=== PATIENT | female | born 1935 | race Caucasian/White ===

== ENCOUNTER 2024-03-20 18:53 | Inpatient (IN) ==
[2024-03-20 21:45] LABS: iSTAT Creatinine 1.5 mg/dl (0.6-1.3); iSTAT Hemoglobin 9.5 g/dl (12.0-16.0); iSTAT Ionized Calcium 1.17 mmol/l (1.12-1.32); iSTAT Potassium 4.3 mmol/L (3.3-5.0)
[2024-03-20] MEDS: OPTIRAY 320 125ml IV ONE (21:51)
[2024-03-20 22:05] LABS: Alanine Aminotransferase 15 U/L (7-52); Albumin Globulin Ratio 1.2 (0.9-2); Albumin Level 3.4 gm/dl (3.4-5.0); Alkaline Phosphatase 76 U/L (34-104); Anion Gap 8 (3-11); Aspartate Aminotransferase 20 U/L (13-39); BUN Creatinine Ratio 31.7 (10-20); Bilirubin,Total 1.4 mg/dl (0.2-1.0); Blood Urea Nitrogen 44 mg/dl (6-23); Calcium 8.9 mg/dl (8.6-10.3); Carbon Dioxide 24 mmol/L (21-32); Chloride 104 mmol/L (98-107); Est GFR (African American) 38.8 ml/min; Est GFR (Non-African American) 33.5 ml/min; Globulin 2.8 gm/dl (2.5-4.0); Glucose 153 mg/dl (70-99(Fasting)); Potassium 4.2 mmol/L (3.5-5.1); Sodium 136 mmol/L (136-145); Total Protein 6.2 gm/dl (6.0-8.3)
[2024-03-20 22:15] LABS: INR 1.2 (0.9-1.1); Partial Thromboplastin Time 27 Seconds (21-31); Prothrombin Time 12.6 Seconds (9.0-12.0)
[2024-03-20 22:16] LABS: Hematocrit (blood only) 31.4 % (37.0-47.0); Hemoglobin 9.6 g/dl (12.0-16.0); Mean Corpuscular Hemoglobin 25.1 pg (25.0-34.0); Mean Corpuscular Hgb Conc 30.6 g/dL (32.0-36.0); Mean Corpuscular Volume 82.2 fL (80.0-100.0); Mean Platelet Volume 9.5 fL (9.4-12.4); Platelet Count 248 K/uL (130-400); RDW Coefficient of Variation 17.4 % (11.5-14.5); RDW Standard Deviation 50.7 fL (36.4-46.3); Red Blood Count 3.82 M/uL (4.20-5.40); White Blood Count 8.29 K/ul (4.8-10.8)
--- NOTE | 2024-03-20 22:47 | Emergency Department Note ---
Impression & Plan Bilateral leg weakness, Bilateral pleural effusion, Bilateral leg edema, Renal insufficiency, Elevated troponin ED Provider Note NAME: MARIA T SHI AGE: 88 SEX: F : 1935 ARRIVES VIA: Walk-In INFORMANT: Patient ED PROVIDER(S): Angelito Mccarthy MD CHIEF COMPLAINT: Leg weakness, PLAN: Disposition: Admit MEDICAL DECISION MAKING: The patient is a pleasant 88-year-old woman with past medical history of hypertension, hypothyroidism, status post AVR with bioprosthetic valve yesterday at [facility] where she was discharged this morning with who presents to the emergency department via walk-in accompanied by her and son for evaluation of generalized weakness of bilateral lower extremities with right lower extremity weaker than the left. The patient's son reports that to his knowledge there was no physical therapy assessment prior to her discharge. He adds that she was experiencing lower extremity weakness even before her admission but it was there hope/anticipation that this would have resolved after her valve replacement. He reports that they left the hospital and stopped at his home in [place] to change cars and had noticed that she could not stand on her own or walk. However instead of returning to [facility] they were hopeful that this would resolve and proceeded to travel back to [place] and route to her home in [place]. However due to the persistence of her weakness I decided that they could not care for her at home and brought her to the emergency department. They report that they are concerned that there may be a stroke given her right leg appears weaker than the left. The patient himself is a poor historian and perseverates on where her grandson is. She denies any complaints at this time. Last known well time is unknown as patient's son reports that the patient had not ambulated prior to her discharge. Of note, the patient did arrive to emergency department during time of high volume, acuity and prolonged emergency department waiting times. Critical pathways initiated from triage. On evaluation the patient is in no acute distress, afebrile with stable vital signs. She exhibits 2/5 strength of bilateral lower extremities with right lower extremity slightly weaker than the left. She has positive Doppler signal in bilateral lower extremities. Bilateral lower extremities are warm with normal capillary refill. Bilateral groin sites with ecchymosis appropriate for her postop status without significant hematoma or seroma. She has 1+ bilateral lower extremity edema. EKG is paced without overt acute ischemia. Chest x-ray with bilateral pleural effusions and venous congestion. WBC and platelets within normal limits. H/H 9.6/31.4 without prior for comparison. Creatinine is 1.39 without prior for comparison. LFTs are unremarkable. Initial high styptic troponin 317, nonspecific in the setting of the patient's aortic valve replacement yesterday. UA without evidence of infection. CT of the head and CT of the head and neck were performed and were negative for ICH, ischemia or severe narrowing occlusion of large vessels. Description of possible bronchitis with pneumonitis is noted as well as further visualization of bilateral pleural effusions given supine positioning. Given bilateral lower extremity pulses are present unlikely to have symptoms related to acute vascular process/injury in the setting of her recent aortic valve replacement. However, given the patient's inability to ambulate reasonable to admit for further stroke evaluation and PT/OT assessment. The patient's son and at the bedside agree with plan for admission. Case was [facility] with [facility], who will evaluate the patient for admission. Further management per admitting team. Triage Nursing notes reviewed and agree them. Prior/external medical records reviewed Vital Signs: reviewed Differential diagnosis: Infection, dehydration, metabolic abnormality, hypo/hyperglycemia, electrolyte disturbance, anemia, hypoxia, cardiac sources, intracerebral event, toxicologic, neurologic, as well as other pathologies. ER treatment provided: See below. Diagnostics interpreted by me: ECG: Ventricular paced rhythm, 81 bpm, no ectopy, no overt ischemia. Cardiac Monitoring: An order for continuous cardiac monitoring was placed and demonstrated Ventricular paced rhythm, 81 bpm, no ectopy. Laboratory studies: See below Imaging studies: See below Consultation(s): [facility] was [facility], who will evaluate the patient for admission. HPI: The patient is a pleasant 88-year-old woman with past medical history of hypertension, hypothyroidism, status post AVR with bioprosthetic valve yesterday at [facility] where she was discharged this morning with who presents to the emergency department via walk-in accompanied by her and son for evaluation of generalized weakness of bilateral lower extremities with right lower extremity weaker than the left. The patient's son reports that to his knowledge there was no physical therapy assessment prior to her discharge. He adds that she was experiencing lower extremity weakness even before her admission but it was there hope/anticipation that this would have resolved after her valve replacement. He reports that they left the hospital and stopped at his home in [place] to change cars and had noticed that she could not stand on her own or walk. However instead of returning to [facility] they were hopeful that this would resolve and proceeded to travel back to [place] and route to her home in [place]. However due to the persistence of her weakness I decided that they could not care for her at home and brought her to the emergency department. They report that they are concerned that there may be a stroke given her right leg appears weaker than the left. The patient himself is a poor historian and perseverates on where her grandson is. She denies any complaints at this time. Last known well time is unknown as patient's son reports that the patient had not ambulated prior to her discharge. ROS: See above HPI for pertinent positives & negatives. A total of 10 systems reviewed and were otherwise negative. VITALS:See Below PHYSICAL EXAMINATION: GENERAL: Awake, alert, in no distress HENT: Normocephalic, atraumatic. Oropharynx unremarkable. EYES: Normal conjunctiva. Sclera non-icteric. NECK: Supple. No nuchal rigidity. FROM. No JVD. RESPIRATORY: Clear to auscultation. CARDIAC: Regular rate, normal rhythm. Extremities warm and well perfused. Pedal pulses present and equal. ABDOMEN: Soft, non-distended. No tenderness to palpation. No rebound or guarding. No masses. MUSCULOSKELETAL: Chest examination reveals no tenderness. The back is symmetrical on inspection without obvious abnormality. There is no CVA tenderness to palpation. No joint edema. LOWER EXTREMITIES: Calves are equal size bilaterally and non-tender. 1+ edema. No discoloration. NEURO: Generalized weakness with increased weakness in bilateral extremities with 2/5 strength with right lower extremity mildly weaker than the left. SKIN: No rash or jaundice noted. Angelito Mccarthy MD Past Med/Surg History Problem List (Updated 03/21/24 @ 02:46 by Angelito Mccarthy MD) Elevated troponin (Acute) Renal insufficiency (Acute) Bilateral leg edema (Acute) Bilateral pleural effusion (Acute) Bilateral leg weakness (Acute) Weakness Medical History Hypothyroidism Hypertension Surgical History S/P AVR (aortic valve replacement) Social History Smoking Status: Never smoker Preferred Language: Georgian Feels Safe at Home: Yes Home Meds Home Medications Medication Instructions Recorded Confirmed amlodipine 2.5 mg tablet 2.5 mg PO DAILY 03/21/24 03/21/24 atorvastatin 10 mg tablet 10 mg PO DAILY 03/21/24 03/21/24 bumetanide 0.5 mg tablet 1 mg PO DAILY 03/21/24 03/21/24 cholecalciferol (vitamin D3) 125 125 mcg PO DAILY 03/21/24 03/21/24 mcg (5,000 unit) tablet (Vitamin D3) cyanocobalamin (vitamin B-12) 1,000 mcg PO DAILY 03/21/24 03/21/24 1,000 mcg tablet levothyroxine 75 mcg tablet 75 mcg PO DAILY 03/21/24 03/21/24 losartan 50 mg tablet 50 mg PO DAILY 03/21/24 03/21/24 potassium chloride 10 mEq 10 meq PO DAILY 03/21/24 03/21/24 tablet,extended release Results & Data (ED) Vital Signs Vital Signs - 24 hr 03/20/24 18:56 03/20/24 19:01 03/20/24 19:01 Temperature 36.8 C Temperature Source Temporal Artery Scan Pulse Rate 92 H Pulse Rate from SpO2 Sensor Respiratory Rate 16 Blood Pressure 127/68 Blood Pressure Mean 87 Pulse Oximetry 98 Oxygen Delivery Method Room Air Room Air Room Air Sepsis Recent Fever Within 48 Hours No Sepsis New/Unexplained Change in Mental Status No Sepsis Action Taken by Nursing No Action Required 03/20/24 20:33 03/20/24 20:36 03/20/24 20:54 Temperature Temperature Source Pulse Rate 83 82 80 Pulse Rate from SpO2 Sensor 82 Respiratory Rate 25 H 18 Blood Pressure Blood Pressure Mean Pulse Oximetry 97 Oxygen Delivery Method Sepsis Recent Fever Within 48 Hours Sepsis New/Unexplained Change in Mental Status Sepsis Action Taken by Nursing 03/20/24 21:07 03/20/24 21:07 03/20/24 21:09 Temperature Temperature Source Pulse Rate 95 H Pulse Rate from SpO2 Sensor 95 H Respiratory Rate Blood Pressure 129/70 129/70 Blood Pressure Mean 104 104 Pulse Oximetry 94 Oxygen Delivery Method Sepsis Recent Fever Within 48 Hours Sepsis New/Unexplained Change in Mental Status Sepsis Action Taken by Nursing 03/21/24 00:39 Temperature Temperature Source Pulse Rate 73 Pulse Rate from SpO2 Sensor Respiratory Rate Blood Pressure Blood Pressure Mean Pulse Oximetry Oxygen Delivery Method Sepsis Recent Fever Within 48 Hours Sepsis New/Unexplained Change in Mental Status Sepsis Action Taken by Nursing Laboratory Data Attestation: I reviewed the patient's lab results. 03/20/24 21:27 03/20/24 21:27 Lab Results 03/20/24 03/20/24 Range/Units 21:27 21:33 WBC 8.29 (4.8-10.8) K/ul RBC 3.82 L (4.20-5.40) M/uL Hgb 9.6 L (12.0-16.0) g/dl POC Hgb 9.5 L (12.0-16.0) g/dl Hct 31.4 L (37.0-47.0) % POC Hct 28 L (37-47) % MCV 82.2 (80.0-100.0) fL MCH 25.1 (25.0-34.0) pg MCHC 30.6 L (32.0-36.0) g/dL RDW Std Deviation 50.7 H (36.4-46.3) fL RDW Coeff of Priscilla 17.4 H (11.5-14.5) % Plt Count 248 (130-400) K/uL MPV 9.5 (9.4-12.4) fL PT 12.6 H (9.0-12.0) Seconds INR 1.2 H (0.9-1.1) APTT 27 (21-31) Seconds PTT Ratio 1.0 POC Sodium 141 (135-144) mmol/L Sodium 136 (136-145) mmol/L POC Potassium 4.3 (3.3-5.0) mmol/L Potassium 4.2 (3.5-5.1) mmol/L POC Chloride 107 (101-112) mmol/L Chloride 104 (98-107) mmol/L Carbon Dioxide 24 (21-32) mmol/L POC Total CO2 25 (24-31) mmol/L Anion Gap 8 (3-11) POC Anion Gap 15.0 L (16-25) mmol/L POC BUN 44 H (7-18) mg/dl BUN 44 H (6-23) mg/dl Creatinine 1.39 H (0.6-1.2) mg/dl POC Creatinine 1.5 H (0.6-1.3) mg/dl Est Cr Clr Drug Dosing Not Reportable Est GFR ( Amer) 38.8 ml/min Est GFR (Non-Af Amer) 33.5 ml/min BUN/Creatinine Ratio 31.7 H (10-20) Glucose 153 H (70-99(Fasting)) mg/dl POC Glucose (other) 153 H (70-99) mg/dl Calcium 8.9 (8.6-10.3) mg/dl POC Ioniz Calcium Rosio 1.17 (1.12-1.32) mmol/l Magnesium 2.0 (1.7-2.4) mg/dl Total Bilirubin 1.4 H (0.2-1.0) mg/dl AST 20 (13-39) U/L ALT 15 (7-52) U/L Alkaline Phosphatase 76 (34-104) U/L Troponin I High Sens 317.7 H* (0-14) pg/ml Total Protein 6.2 (6.0-8.3) gm/dl Albumin 3.4 (3.4-5.0) gm/dl Globulin 2.8 (2.5-4.0) gm/dl Albumin/Globulin Ratio 1.2 (0.9-2) Administered Medications Discontinued Medications Ioversol (Optiray 320 125ml) 117 ml IV ONCE ONE Stop: 03/20/24 21:51 Last Admin: 03/20/24 21:51 Dose: 117 ml Documented By: [facility] Imaging Data Radiologist's Impression: Head CT 03/20/24 19:01 CR Exam(s): CT HEAD Without Contrast EXAM: CT Head Without Intravenous Contrast CLINICAL HISTORY: Reason for exam: Neuro deficit, acute, stroke suspected. TECHNIQUE: Axial computed tomography images of the head/brain without intravenous contrast. CTDI is 31.88 mGy and DLP is 1179.85 mGy-cm. Automated exposure control was utilized for the study. A dose lowering technique was utilized adhering to the principles of ALARA. COMPARISON: No relevant prior studies available. FINDINGS: This study is limited secondary to motion artifact. Brain: Unremarkable. No hemorrhage. Advanced nonspecific white matter changes.. No edema. Ventricles: Unremarkable. No ventriculomegaly. Bones/joints: Unremarkable. No acute fracture. Soft tissues: Unremarkable. Sinuses: Unremarkable as visualized. No acute sinusitis. Mastoid air cells: Unremarkable as visualized. No mastoid effusion. IMPRESSION: No evidence of acute intracranial pathology. Communications: Call Doctor Stroke Electronically signed by: Naya Mckeon MD 03/20/24 23:02 PM Head CTA 03/20/24 21:16 CR Exam(s): CTA HEAD With Contrast IV Amt: 117 cc opti 320 EXAM: CT Angiography Head With Intravenous Contrast CLINICAL HISTORY: Reason for exam: BLE weakness. TECHNIQUE: Axial computed tomographic angiography images of the head with intravenous contrast. CTDI is 31.88 mGy and DLP is 1179.85 mGy-cm. Automated exposure control was utilized for the study. A dose lowering technique was utilized adhering to the principles of ALARA. MIP reconstructed images were created and reviewed. CONTRAST: Patient received 117 cc opti 320 of IV contrast COMPARISON: No relevant prior studies available. FINDINGS: The dural venous sinuses are patent. Right internal carotid artery: No acute findings. Intracranial segment is patent with no significant stenosis. No aneurysm. Right anterior cerebral artery: Unremarkable. No occlusion or significant stenosis. No aneurysm. Right middle cerebral artery: Unremarkable. No occlusion or significant stenosis. No aneurysm. Right posterior cerebral artery: Unremarkable. No occlusion or significant stenosis. No aneurysm. Right vertebral artery: Unremarkable as visualized. Left internal carotid artery: No acute findings. Intracranial segment is patent with no significant stenosis. No aneurysm. Left anterior cerebral artery: Unremarkable. No occlusion or significant stenosis. No aneurysm. Left middle cerebral artery: Unremarkable. No occlusion or significant stenosis. No aneurysm. Left posterior cerebral artery: Unremarkable. No occlusion or significant stenosis. No aneurysm. Left vertebral artery: Unremarkable as visualized. Basilar artery: Unremarkable. No occlusion or significant stenosis. No aneurysm. IMPRESSION: Negative CT angiogram of the head. Communications: Verify Receipt Call Doctor Stroke Electronically signed by: Naya Mckeon MD 03/20/24 23:05 PM Neck CTA 03/20/24 21:16 CR Exam(s): CTA NECK With Contrast IV Amt: 117 cc opti 320 EXAM: CT Angiography Neck With Intravenous Contrast CLINICAL HISTORY: Reason for exam: BLE weakness. TECHNIQUE: Routine carotid CT angiography protocol was performed with intravenous contrast. NASCET criteria using the distal ICAs for comparison were used for evaluation of stenoses. CTDI is 31.88 mGy and DLP is 1179.85 mGy-cm. Automated exposure control was utilized for the study. A dose lowering technique was utilized adhering to the principles of ALARA. MIP reconstructed images were created and reviewed. CONTRAST: Patient received 117 cc opti 320 of IV contrast COMPARISON: None. FINDINGS: VASCULATURE: Aberrant right subclavian artery. Right common carotid artery: Unremarkable. No occlusion or significant stenosis. No dissection. Right internal carotid artery: Unremarkable. Extracranial segment is patent with no occlusion or significant stenosis. No dissection. Right external carotid artery: Unremarkable. No occlusion. Right vertebral artery: Unremarkable. No occlusion or significant stenosis. No dissection. Left common carotid artery: Unremarkable. No occlusion or significant stenosis. No dissection. Left internal carotid artery: Unremarkable. Extracranial segment is patent with no occlusion or significant stenosis. No dissection. Left external carotid artery: Unremarkable. No occlusion. Left vertebral artery: Unremarkable. No occlusion or significant stenosis. No dissection. NECK: Bones/joints: Unremarkable. No acute fracture. Soft tissues: Prominent mediastinal and hilar lymph nodes. Lung apices: Bronchitis with pneumonitis and bilateral pleural effusions. CAROTID STENOSIS REFERENCE USING NASCET CRITERIA: % ICA stenosis = (1 - narrowest ICA diameter/diameter of distal cervical ICA) x 100. Mild - <50% stenosis. Moderate - 50-69% stenosis. Severe - 70-94% stenosis. Near occlusion - 95-99% stenosis. Occluded - 100% stenosis. IMPRESSION: Negative CTA neck. Communications: Verify Receipt Call Doctor Stroke Electronically signed by: Naya Mckeon MD 03/20/24 23:09 PM Discharge Plan Visit Data Chief Complaint: TIA Symptoms Stated Complaint: POSSIBLE STOKE, UNABLE TO MOVE, RECENT VALVE RP ED Provider: Angelito Mccarthy Discharge Problem: Bilateral leg weakness, Bilateral pleural effusion, Bilateral leg edema, Renal insufficiency, Elevated troponin Patient Disposition: Admitted As Inpatient Discharge Instructions Interventions: ED Discharge Assessment Last Done: 03/21/24 02:29
--- NOTE | 2024-03-20 23:03 | CT Scan Report ---
Exam(s): CT HEAD Without Contrast EXAM: CT Head Without Intravenous Contrast CLINICAL HISTORY: Reason for exam: Neuro deficit, acute, stroke suspected. TECHNIQUE: Axial computed tomography images of the head/brain without intravenous contrast. CTDI is 31.88 mGy and DLP is 1179.85 mGy-cm. Automated exposure control was utilized for the study. A dose lowering technique was utilized adhering to the principles of ALARA. COMPARISON: No relevant prior studies available. FINDINGS: This study is limited secondary to motion artifact. Brain: Unremarkable. No hemorrhage. Advanced nonspecific white matter changes.. No edema. Ventricles: Unremarkable. No ventriculomegaly. Bones/joints: Unremarkable. No acute fracture. Soft tissues: Unremarkable. Sinuses: Unremarkable as visualized. No acute sinusitis. Mastoid air cells: Unremarkable as visualized. No mastoid effusion. IMPRESSION: No evidence of acute intracranial pathology. Communications: Call Doctor Stroke Electronically signed by: Naya Mckeon MD 03/20/24 23:02 PM
--- NOTE | 2024-03-20 23:06 | CT Scan Report ---
Exam(s): CTA HEAD With Contrast IV Amt: 117 cc opti 320 EXAM: CT Angiography Head With Intravenous Contrast CLINICAL HISTORY: Reason for exam: BLE weakness. TECHNIQUE: Axial computed tomographic angiography images of the head with intravenous contrast. CTDI is 31.88 mGy and DLP is 1179.85 mGy-cm. Automated exposure control was utilized for the study. A dose lowering technique was utilized adhering to the principles of ALARA. MIP reconstructed images were created and reviewed. CONTRAST: Patient received 117 cc opti 320 of IV contrast COMPARISON: No relevant prior studies available. FINDINGS: The dural venous sinuses are patent. Right internal carotid artery: No acute findings. Intracranial segment is patent with no significant stenosis. No aneurysm. Right anterior cerebral artery: Unremarkable. No occlusion or significant stenosis. No aneurysm. Right middle cerebral artery: Unremarkable. No occlusion or significant stenosis. No aneurysm. Right posterior cerebral artery: Unremarkable. No occlusion or significant stenosis. No aneurysm. Right vertebral artery: Unremarkable as visualized. Left internal carotid artery: No acute findings. Intracranial segment is patent with no significant stenosis. No aneurysm. Left anterior cerebral artery: Unremarkable. No occlusion or significant stenosis. No aneurysm. Left middle cerebral artery: Unremarkable. No occlusion or significant stenosis. No aneurysm. Left posterior cerebral artery: Unremarkable. No occlusion or significant stenosis. No aneurysm. Left vertebral artery: Unremarkable as visualized. Basilar artery: Unremarkable. No occlusion or significant stenosis. No aneurysm. IMPRESSION: Negative CT angiogram of the head. Communications: Verify Receipt Call Doctor Stroke Electronically signed by: Naya Mckeon MD 03/20/24 23:05 PM
--- NOTE | 2024-03-20 23:11 | CT Scan Report ---
Exam(s): CTA NECK With Contrast IV Amt: 117 cc opti 320 EXAM: CT Angiography Neck With Intravenous Contrast CLINICAL HISTORY: Reason for exam: BLE weakness. TECHNIQUE: Routine carotid CT angiography protocol was performed with intravenous contrast. NASCET criteria using the distal ICAs for comparison were used for evaluation of stenoses. CTDI is 31.88 mGy and DLP is 1179.85 mGy-cm. Automated exposure control was utilized for the study. A dose lowering technique was utilized adhering to the principles of ALARA. MIP reconstructed images were created and reviewed. CONTRAST: Patient received 117 cc opti 320 of IV contrast COMPARISON: None. FINDINGS: VASCULATURE: Aberrant right subclavian artery. Right common carotid artery: Unremarkable. No occlusion or significant stenosis. No dissection. Right internal carotid artery: Unremarkable. Extracranial segment is patent with no occlusion or significant stenosis. No dissection. Right external carotid artery: Unremarkable. No occlusion. Right vertebral artery: Unremarkable. No occlusion or significant stenosis. No dissection. Left common carotid artery: Unremarkable. No occlusion or significant stenosis. No dissection. Left internal carotid artery: Unremarkable. Extracranial segment is patent with no occlusion or significant stenosis. No dissection. Left external carotid artery: Unremarkable. No occlusion. Left vertebral artery: Unremarkable. No occlusion or significant stenosis. No dissection. NECK: Bones/joints: Unremarkable. No acute fracture. Soft tissues: Prominent mediastinal and hilar lymph nodes. Lung apices: Bronchitis with pneumonitis and bilateral pleural effusions. CAROTID STENOSIS REFERENCE USING NASCET CRITERIA: % ICA stenosis = (1 - narrowest ICA diameter/diameter of distal cervical ICA) x 100. Mild - <50% stenosis. Moderate - 50-69% stenosis. Severe - 70-94% stenosis. Near occlusion - 95-99% stenosis. Occluded - 100% stenosis. IMPRESSION: Negative CTA neck. Communications: Verify Receipt Call Doctor Stroke Electronically signed by: Naya Mckeon MD 03/20/24 23:09 PM
[2024-03-20 23:59] LABS: Troponin I High Sensitivity 317.7 pg/ml (0-14)
--- NOTE | 2024-03-21 01:36 | History & Physical Report ---
Date of Service March 21, 2024 Assessment & Plan (1) Weakness: Plan: 88-year-old female with past medical history significant for hypertension, hyperlipidemia, hypothyroidism, history of bradycardia status post pacemaker last year at the [facility] and on 03/18/2024 she had had TAVR procedure for aortic valve at [place] and was discharged on 03/19/2024 was brought in by and son because of weakness. As per son at the time of d ischarge patient was weak but was got discharged and son took her to his home. Before admitted to [place] patient was ambulating okay sometimes used to use cane. But since she was discharged from [place] patient is not at all ambulating. She is able to lift her left leg somewhat but right leg she is dragging. Her upper extremities also seemed very weak. This reason family brought her back to the hospital. Patient is currently sleeping. Very hard of hearing. Could tell her name. Knows that she is in the hospital. Can tell her date of . But could not tell current dates. She denies any chest pain or abdominal pain. Denies nausea or shortness of breath. Could not get much history from the patient as currently is sleepy. As per the family prior to surgery she was not eating much but after surgery she had two good meals. And she is swallowing okay. Before surgery she was getting short of breath but after surgery her shortness of breath seemed improved. family not sure that she had a CHF. But taking Bumex. Family denies any cardiac stents.Family says patient has on and off confusion going on for some time but not sure if she has dementia. Patient is afebrile. As per family no nausea or vomiting. Family does not know whether she has any diarrhea.. As per patient has urinary incontinence. Son is somewhat concerned that patient might had stroke. No runny nose or sore throat or cough. Vision is okay. Currently hemodynamics are okay. Family helped with H and P. Son lives in [place]. Patient and her live in [place]. Weakness Seems generalized weakness but also right leg is more weaker than left Rule out stroke CT head, CTA head and neck unremarkable Neurochecks Ordered MRI but patient recently had seems had TAVR procedure at [place] and pacemaker placement last year at [facility] -cannot do MRI until Saturday because of pacemaker PT OT Telemetry Neurology consult in a.m. for further recommendations probable deconditioning May need placement Elevated troponin Troponin 317 Patient asymptomatic EKG okay Had recent TAVR procedure We will follow serial enzymes and echo Consult cardiology Anemia Hemoglobin 9.6 We do not have baseline labs We will check stool for Hemoccult Iron studies Vitamin B12 folate levels follow labs LY versus CKD Presents with creatinine 1.3 Do not have baseline labs To get records We will follow repeat labs Hypertension Continue home amlodipine and losartan Will hold losartan if renal function worsens Hyperlipidemia On statin Hypothyroidism On Synthyroid follow tsh Lower EXTR edema Possible CHF On Bumex Will follow echo DVT prophylaxis SCDs for now Disposition Telemetry CODE STATUS full code only if there is chance of recovery as per my discussion with the son History of Present Illness Chief Complaint: Weakness Primary Care Provider: SEAN PCP 88-year-old female with past medical history significant for hypertension, hyperlipidemia, hypothyroidism, history of bradycardia status post pacemaker last year at the [facility] and on 03/18/2024 she had had TAVR procedure for aortic valve at [place] and was discharged on 03/19/2024 was brought in by and son because of weakness. As per son at the time of discharge patient was weak but was got discharged and son took her to his home. Before admitted to [place] patient was ambulating okay sometimes used to use cane. But since she was discharged from [place] patient is not at all ambulating. She is able to lift her left leg somewhat but right leg she is dragging. Her upper extremities also seemed very weak. This reason family brought her back to the hospital. Patient is currently sleeping. Very hard of hearing. Could tell her name. Knows that she is in the hospital. Can tell her date of . But could not tell current dates. She denies any chest pain or abdominal pain. Denies nausea or shortness of breath. Could not get much history from the patient as currently is sleepy. As per the family prior to surgery she was not eating much but after surgery she had two good meals. And she is swallowing okay. Before surgery she was getting short of breath but after surgery her shortness of breath seemed improved. family not sure that she had a CHF. But taking Bumex. Family denies any cardiac stents.Family says patient has on and off confusion going on for some time but not sure if she has dementia. Patient is afebrile. As per family no nausea or vomiting. Family does not know whether she has any diarrhea.. As per patient has urinary incontinence. Son is somewhat concerned that patient might had stroke. No runny nose or sore throat or cough. Vision is okay. Currently hemodynamics are okay. Family helped with H and P. Son lives in [place]. Patient and her hus band live in [place]. Past medical history. As mentioned above Past surgical history. Status post pacemaker. Status post bioprosthetic aortic valve replacement. Status post bladder tack surgery. Social history. No smoking. Alcohol rarely. Family history. Mother had liver cancer. Allergies Allergy/AdvReac Type Severity Reaction Status Date / Time No Known Allergies Allergy Unverified 03/21/24 02:52 Home Medications Medication Instructions Recorded Confirmed Type amlodipine 2.5 mg tablet 2.5 mg PO DAILY 03/21/24 03/21/24 History atorvastatin 10 mg tablet 10 mg PO DAILY 03/21/24 03/21/24 History bumetanide 0.5 mg tablet 1 mg PO DAILY 03/21/24 03/21/24 History cholecalciferol (vitamin D3) 125 125 mcg PO DAILY 03/21/24 03/21/24 History mcg (5,000 unit) tablet (Vitamin D3) cyanocobalamin (vitamin B-12) 1,000 mcg PO DAILY 03/21/24 03/21/24 History 1,000 mcg tablet levothyroxine 75 mcg tablet 75 mcg PO DAILY 03/21/24 03/21/24 History losartan 50 mg tablet 50 mg PO DAILY 03/21/24 03/21/24 History potassium chloride 10 mEq 10 meq PO DAILY 03/21/24 03/21/24 History tablet,extended release Past Med/Surg History Problem List (Updated 03/21/24 @ 02:46 by Angelito Mccarthy MD) Elevated troponin (Acute) Renal insufficiency (Acute) Bilateral leg edema (Acute) Bilateral pleural effusion (Acute) Bilateral leg weakness (Acute) Weakness Medical History Hypothyroidism Hypertension Surgical History S/P AVR (aortic valve replacement) Social History Smoking Status: Never smoker Hx Alcohol Use: Yes Alcohol type: wine Hx Substance Use: No Preferred Language: Korean Communication Ability: Effective Factory Expert Required: No Beliefs That Will Affect Care: Rastafarian Rastafarian Beliefs: Yazidism Current Living Situation: Spouse Other Information That Helps Us Care for You: No Feels Safe at Home: Yes Safety Concerns: Feels Safe At This Time Review of Systems Review of Systems: Unobtainable due to cognitive status Physical Exam 2 Physical Exam: General- Not in acute distress. Sleepy Head- atraumatic Neck- no JVD Lungs- clear to auscultation no wheezing or crackles Heart- regular rate and rhythm; no murmur, no gallop Abdomen- normal bowel sounds, soft, mild discomfort, no distension Extremities- mild pretibial edema present , no erythema seen Neuro- alert, oriented x 2; ; no facial palsy; no dysarthria; could not do full exam as patient is very drowsy currently Results & Data Results & Data Vital Signs (Past 12 Hours) Vital Signs Temp Pulse Resp BP Pulse Ox O2 Del Method 03/21/24 00:39 73 03/20/24 21:09 95 H 94 03/20/24 21:07 129/70 03/20/24 21:07 129/70 03/20/24 20:54 80 18 03/20/24 20:36 82 25 H 97 03/20/24 20:33 83 03/20/24 19:01 Room Air 03/20/24 19:01 Room Air 03/20/24 18:56 36.8 C 92 H 16 127/68 98 Room Air Diagnostic Findings Laboratory Results WBC 8.29 K/ul (4.8-10.8) 03/20/24 21:27 RBC 3.82 M/uL (4.20-5.40) L 03/20/24 21:27 Hgb 9.6 g/dl (12.0-16.0) L 03/20/24 21: POC Hgb 9.5 g/dl (12.0-16.0) L 03/20/24 21:33 Hct 31.4 % (37.0-47.0) L 03/20/24 21: POC Hct 28 % (37-47) L 03/20/24 21:33 MCV 82.2 fL (80.0-100.0) 03/20/24 21: MCH 25.1 pg (25.0-34.0) 03/20/24 21: MCHC 30.6 g/dL (32.0-36.0) L 03/20/24 21: RDW Std Deviation 50.7 fL (36.4-46.3) H 03/20/24 21: RDW Coeff of Priscilla 17.4 % (11.5-14.5) H 03/20/24 21: Plt Count 248 K/uL (130-400) 03/20/24 21: MPV 9.5 fL (9.4-12.4) 03/20/24: PT 12.6 Seconds (9.0-12.0) H 03/20/24 21: INR 1.2 (0.9-1.1) H 03/20/24 21: APTT 27 Seconds (21-31) 03/20/24: PTT Ratio 1.0 03/20/24 21: POC Sodium 141 mmol/L (135-144) 03/20/24 21: Sodium 136 mmol/L (136-145) 03/20/24 21: POC Potassium 4.3 mmol/L (3.3-5.0) 03/20/24 21: Potassium 4.2 mmol/L (3.5-5.1) 03/20/24 21: POC Chloride 107 mmol/L (101-112) 03/20/24 21: Chloride 104 mmol/L (98-107) 03/20/24 21: Carbon Dioxide 24 mmol/L (21-32) 03/20/24 21: POC Total CO2 25 mmol/L (24-31) 03/20/24 21: Anion Gap 8 (3-11) 03/20/24 21: POC Anion Gap 15.0 mmol/L (16-25) L 03/20/24 21:33 POC BUN 44 mg/dl (7-18) H 03/20/24 21:33 BUN 44 mg/dl (6-23) H 03/20/24 21: Creatinine 1.39 mg/dl (0.6-1.2) H 03/20/24 21: POC Creatinine 1.5 mg/dl (0.6-1.3) H 03/20/24 21:33 Est Cr Clr Drug Dosing Not Reportable 03/20/24 21: Est GFR ( Amer) 38.8 ml/min 03/20/24 21: Est GFR (Non-Af Amer) 33.5 ml/min 03/20/24 21: BUN/Creatinine Ratio 31.7 (10-20) H 03/20/24 21:27 Glucose 153 mg/dl (70-99(Fasting)) H 03/20/24 21: POC Glucose (other) 153 mg/dl (70-99) H 03/20/24 21:33 Calcium 8.9 mg/dl (8.6-10.3) 03/20/24: POC Ioniz Calcium Rosio 1.17 mmol/l (1.12-1.32) 03/20/24 21: Magnesium 2.0 mg/dl (1.7-2.4) 03/20/24: Total Bilirubin 1.4 mg/dl (0.2-1.0) H 03/20/24 21: AST 20 U/L (13-39) 03/20/24 21: ALT 15 U/L (7-52) 03/20/24 21: Alkaline Phosphatase 76 U/L (34-104) 03/20/24 21: Troponin I High Sens 317.7 pg/ml (0-14) H* 03/20/24 21: Total Protein 6.2 gm/dl (6.0-8.3) 03/20/24 21: Albumin 3.4 gm/dl (3.4-5.0) 03/20/24 21: Globulin 2.8 gm/dl (2.5-4.0) 03/20/24 21: Albumin/Globulin Ratio 1.2 (0.9-2) 03/20/24 21: Impressions Head CT 03/20/24 19:01 CR Exam(s): CT HEAD Without Contrast EXAM: CT Head Without Intravenous Contrast CLINICAL HISTORY: Reason for exam: Neuro deficit, acute, stroke suspected. TECHNIQUE: Axial computed tomography images of the head/brain without intravenous contrast. CTDI is 31.88 mGy and DLP is 1179.85 mGy-cm. Automated exposure control was utilized for the study. A dose lowering technique was utilized adhering to the principles of ALARA. COMPARISON: No relevant prior studies available. FINDINGS: This study is limited secondary to motion artifact. Brain: Unremarkable. No hemorrhage. Advanced nonspecific white matter changes.. No edema. Ventricles: Unremarkable. No ventriculomegaly. Bones/joints: Unremarkable. No acute fracture. Soft tissues: Unremarkable. Sinuses: Unremarkable as visualized. No acute sinusitis. Mastoid air cells: Unremarkable as visualized. No mastoid effusion. IMPRESSION: No evidence of acute intracranial pathology. Communications: Call Doctor Stroke Electronically signed by: Naya Mckeon MD 03/20/24 23:02 PM Head CTA 03/20/24 21:16 CR Exam(s): CTA HEAD With Contrast IV Amt: 117 cc opti 320 EXAM: CT Angiography Head With Intravenous Contrast CLINICAL HISTORY: Reason for exam: BLE weakness. TECHNIQUE: Axial computed tomographic angiography images of the head with intravenous contrast. CTDI is 31.88 mGy and DLP is 1179.85 mGy-cm. Automated exposure control was utilized for the study. A dose lowering technique was utilized adhering to the principles of ALARA. MIP reconstructed images were created and reviewed. CONTRAST: Patient received 117 cc opti 320 of IV contrast COMPARISON: No relevant prior studies available. FINDINGS: The dural venous sinuses are patent. Right internal carotid artery: No acute findings. Intracranial segment is patent with no significant stenosis. No aneurysm. Right anterior cerebral artery: Unremarkable. No occlusion or significant stenosis. No aneurysm. Right middle cerebral artery: Unremarkable. No occlusion or significant stenosis. No aneurysm. Right posterior cerebral artery: Unremarkable. No occlusion or significant stenosis. No aneurysm. Right vertebral artery: Unremarkable as visualized. Left internal carotid artery: No acute findings. Intracranial segment is patent with no significant stenosis. No aneurysm. Left anterior cerebral artery: Unremarkable. No occlusion or significant stenosis. No aneurysm. Left middle cerebral artery: Unremarkable. No occlusion or significant stenosis. No aneurysm. Left posterior cerebral artery: Unremarkable. No occlusion or significant stenosis. No aneurysm. Left vertebral artery: Unremarkable as visualized. Basilar artery: Unremarkable. No occlusion or significant stenosis. No aneurysm. IMPRESSION: Negative CT angiogram of the head. Communications: Verify Receipt Call Doctor Stroke Electronically signed by: Naya Mckeon MD 03/20/24 23:05 PM Neck CTA 03/20/24 21:16 CR Exam(s): CTA NECK With Contrast IV Amt: 117 cc opti 320 EXAM: CT Angiography Neck With Intravenous Contrast CLINICAL HISTORY: Reason for exam: BLE weakness. TECHNIQUE: Routine carotid CT angiography protocol was performed with intravenous contrast. NASCET criteria using the distal ICAs for comparison were used for evaluation of stenoses. CTDI is 31.88 mGy and DLP is 1179.85 mGy-cm. Automated exposure control was utilized for the study. A dose lowering technique was utilized adhering to the principles of ALARA. MIP reconstructed images were created and reviewed. CONTRAST: Patient received 117 cc opti 320 of IV contrast COMPARISON: None. FINDINGS: VASCULATURE: Aberrant right subclavian artery. Right common carotid artery: Unremarkable. No occlusion or significant stenosis. No dissection. Right internal carotid artery: Unremarkable. Extracranial segment is patent with no occlusion or significant stenosis. No dissection. Right external carotid artery: Unremarkable. No occlusion. Right vertebral artery: Unremarkable. No occlusion or significant stenosis. No dissection. Left common carotid artery: Unremarkable. No occlusion or significant stenosis. No dissection. Left internal carotid artery: Unremarkable. Extracranial segment is patent with no occlusion or significant stenosis. No dissection. Left external carotid artery: Unremarkable. No occlusion. Left vertebral artery: Unremarkable. No occlusion or significant stenosis. No dissection. NECK: Bones/joints: Unremarkable. No acute fracture. Soft tissues: Prominent mediastinal and hilar lymph nodes. Lung apices: Bronchitis with pneumonitis and bilateral pleural effusions. CAROTID STENOSIS REFERENCE USING NASCET CRITERIA: % ICA stenosis = (1 - narrowest ICA diameter/diameter of distal cervical ICA) x 100. Mild - <50% stenosis. Moderate - 50-69% stenosis. Severe - 70-94% stenosis. Near occlusion - 95-99% stenosis. Occluded - 100% stenosis. IMPRESSION: Negative CTA neck. Communications: Verify Receipt Call Doctor Stroke Electronically signed by: Naya Mckeon MD 03/20/24 23:09 PM ECG Additional Comments: ECG. Normal sinus rhythm rate of 93. Nonspecific T wave abnormalities inferior leads. QTc 442 Code Status & VTE Plan VTE Prophylaxis Plan VTE Prophylaxis will be ordered: Yes
[2024-03-21 01:48] LABS: Appearance Urine Clear (Clear); Bacteria Urine Automated None Seen (None Seen); Bilirubin Urine Negative (Negative); Blood Urine 1+ (Negative); Color Urine Yellow; Epithelial Cell Urine Auto 0-2 /hpf (0-2); Glucose Urine UA Negative (Negative); Ketones Urine Negative (Negative); Leukocyte Esterase Urine Negative (Negative); Nitrite Urine Negative (Negative); Protein Urine Negative (Negative); Specific Gravity Urine 1.034 (1.000-1.030); Urobilinogen Urine Negative (Negative); WBC Urine Automated 0-5 /hpf (0-5)
[2024-03-21] MEDS ORDERED: NITROGLYCERIN SL 0.4 MG/TAB TAB SL PRN (02:29)
[2024-03-21] MEDS ORDERED: POLYETHYLENE (MIRALAX) 17 GM PACK PO PRN (02:29)
[2024-03-21] MEDS ORDERED: PHARMACIST DISCHARGE MED REC CONSULT PRN (02:29)
[2024-03-21] MEDS ORDERED: Patient's ALLERGY Info needs ENTERED STA (02:44)
--- OUTSIDE RECORDS SUMMARY | 2024-03-21 03:11 | External Medical Summary | Continuity of Care Document ---
Author Name Unknown Organization [facility] [address] [place] [id number] Encounter [facility] [id number] Date(s): 03/16/24 - 03/16/24 [facility] [address] [facility] - [address], [address], [address] [place] [id number] [phone] Encounter Diagnosis Body mass index [BMI] 26.0-26.9, adult(Discharge Diagnosis) - 03/16/24 Aortic stenosis(Discharge Diagnosis) - 03/16/24 Discharge Disposition: Home or Self Care Attending Physician: MD Rodriguez Kentaro Referring Physician: MD Rene, Martell Allergies, Adverse Reactions, Alerts No Known Medication Allergies Assessment and Plan Extracted from: Title:Clinical Document Author:MD Rodriguez Kenta ro Date:03/16/24 OUTPATIENT NOTE Name: TAMAR KRUEGER Patient Number:1 [id number] : 1935 Date of Service: 03/16/2024 Ms. Tamar Krueger is a very pleasant 88-year-old woman with known aortic stenosis, hypertension, dyslipidemia, hypothyroidism, stage 3 chronic kidney disease, osteoporosis, iron deficiency anemia, s/p permanent pacer placement, who is under evaluation for possible intervention to her severe aortic stenosis. She has progressing exertional shortness of breath and fatigability in the last few years. She occasionally feels lightheadedness and dizziness with activities. She denies any chest pain, palpitations, syncopal event, orthopnea or swelling in the extremities. Her latest TTE in 11/2023 at [facility] showed mean AV gradient of 57 mmHg, MICHELLE of 0.7 sq cm, dimensionless index of 0.26 with LVEF of 55-60%. She has not undergone a coronary angiogram. She has no known allergies. Her medication was reviewed and reconciled in the EMR. On physical exam, her BP was 90/58 mmHg and HR was 84/min with regular heart rhythm. She was awake, alert, and oriented. She had no JVD. Her breath sounds were clear to auscultate bilaterally. She had 3/6 systolic murmur in the right sternal border. Her abdomen was soft and benign. Her extremities were warm without edema. I agreed that she has severe symptomatic and aortic valve replacement is recommended. I discussed with Ms. Krueger and her family in length, regarding nature of aortic valve disease, indication and purpose of treatment, treatment options including SAVR and TAVR and these procedures, risks and benefits of treatment options, expected postoperative course, etc. Giving her advanced age and comorbidities, I believed TAVR is reasonable approach. They expressed understanding in my explanation. Her CTA on 02/14/2024 at [facility] showed likely feasible anatomy for a transfemoral access. Understanding the risk and benefits from treatment options, she expressed her wish to undergo a TAVR, which I believed reasonable. She was agreeable with a rescue sternotomy, in case it is indicated and as long as the team believe it feasible. Kenya Rodriguez MD. litigation paralegal [facility], Cardiothoracic Surgery [facility] Medications amLODIPine 5 mg oral tablet Start: 03/16/24 3:17:00 PM EDT, 1 tab, PO, Daily Start Date: 03/16/24 Status: Ordered atorvastatin 10 mg oral tablet Start: 03/16/24 3:16:00 PM EDT, 1 tab, PO, Daily Start Date: 03/16/24 Status: Ordered bumetanide 0.5 mg oral tablet Start: 03/16/24 3:47:00 PM EDT, 2 tab, PO, Daily, Disp# 120 tab, Refills: 5, Pharmacy: [id number] Start Date: 03/16/24 Stop Date: 03/11/25 Status: Ordered High Potency Vitamin D3 125 mcg (5000 intl units) oral capsule Start: 03/16/24 3:17:00 PM EDT, 1 cap, PO, Daily Start Date: 03/16/24 Status: Ordered levothyroxine 75 mcg (0.075 mg) oral tablet Start: 03/16/24 3:10:00 PM EDT, 90 each, 0 Refill(s), TAKE 1 TABLET BY MOUTH ONCE DAILY IN THE MORNING ON AN EMPTY STOMACH Start Date: 03/16/24 Status: Ordered losartan 50 mg oral tablet Start: 03/16/24 3:16:00 PM EDT, 1 tab, PO, Daily Start Date: 03/16/24 Status: Ordered potassium chloride 10 mEq oral tablet, extended release Start: 03/16/24 3:16:00 PM EDT, 1 tab, PO, bid Start Date: 03/16/24 Status: Ordered Vitamin B12 1000 mcg oral tablet Start: 03/16/24 3:17:00 PM EDT, 1 tab, PO, Daily Start Date: 03/16/24 Status: Ordered Mental Status 03/16/24 Barriers to Learning one year None evide nt Mandatory Health Literacy Documentation Yes Health Literacy Communication Barriers N ever Primary Language Setswana Problem List Condition Confirmation Course Effective Dates Status Health St atus Informant (aortic stenosis) Confirmed Active Diagnosis Diagnosis Type Effective Dates Health Status Cl inical Service Informant Body mass index [BMI] 26.0-26.9, adult Discharge Diagnosis 03/16/24 Non-Specified Aortic stenosis Discharge Diagnosis 03/16/24 Vital Signs Most recent to oldest [Reference Range]: 1 Height 155 cm (03/16/24 3:19 PM) Patient Weight 64.1 kg (03/16/24 3:19 PM) Body Mass Index 26.68 kg/m2 (03/16/24 3:19 PM) Temperature [36.5-37.9 DegC] 36.2 DegC *LOW* (03/16/24 3:19 PM) Heart Rate 84 bpm (03/16/24 3:19 PM) Respiratory Rate 14 br/min (03/16/24 3:19 PM) Blood Pressure 90/58mmHg (03/16/24 3:19 PM) Cuff Pulse Pressure 32 mmHg (03/16/24 3:19 PM) BP Location # 1 Right Arm (03/16/24 3:19 PM) Social History Social History Type Response Smoking Status Never smoked cigaret zachary Sex Female Sex Representation Female (finding) Outpatient Note * MD Jennifer, Kenya: PERFORM, MODIFY Event Display: .Outpt Note Authored Date: [id number] OUTPATIENT NOTE Name: TAMAR KRUEGER Patient Number:1 [id number] : 1935 Date of Service: 03/16/2024 Ms. Tamar Krueger is a very pleasant 88-year-old woman with known aortic stenosis, hypertension, dyslipidemia, hypothyroidism, stage 3 chronic kidney disease, osteoporosis, iron deficiency anemia, s/p permanent pacer placement, who is under evaluation for possible intervention to her severe aortic stenosis. She has progressing exertional shortness of breath and fatigability in the last few years. She occasionally feels lightheadedness and dizziness with activities. She denies any chest pain, palpitations, syncopal event, orthopnea or swelling in the extremities. Her latest TTE in 11/2023 at [facility] showed mean AV gradient of 57 mmHg, MICHELLE of 0.7 sq cm, dimensionless index of 0.26 with LVEF of 55-60%. She has not undergone a coronary angiogram. She has no known allergies. Her medication was reviewed and reconciled in the EMR. On physical exam, her BP was 90/58 mmHg and HR was 84/min with regular heart rhythm. She was awake,alert, and oriented. She had no JVD. Her breath sounds were clear to auscultate bilaterally. She had 3/6 systolic murmur in the right sternal border. Her abdomen was soft and benign. Her extremities were warm without edema. I agreed that she has severe symptomatic and aortic valve replacement is recommended. I discussed with Ms. Krueger and her family in length, regarding nature of aortic valve disease, indication and purpose of treatment, treatment options including SAVR and TAVR and these procedures, risks and benefits of treatment options, expected postoperative course, etc. Giving her advanced age and comorbidities, I believed TAVR is reasonable approach. They expressed understanding in my explanation. Her CTA on 02/14/2024 at [facility] showed likely feasible anatomy for a transfemoral access. Understanding the risk and benefits from treatment options, she expressed her wish to undergo a TAVR, which I believed reasonable. She was agreeable with a rescue sternotomy, in case it is indicated and as longas the team believe it feasible. Kenya Rodriguez MD. litigation paralegal [facility], Cardiothoracic Surgery [facility] Electronic Signature on File Electronically Reviewed/Signed by: Kenya Rodriguez MD Author Signature Dt/Tm:03/16/2024 05:24 PM Division of Cardiothoracic Surgery [facility]
--- OUTSIDE RECORDS SUMMARY | 2024-03-21 03:11 | External Medical Summary | Continuity of Care Document ---
Author Name Unknown Organization [facility] [address] [place] CASH [id number] Encounter [facility] [id number] Date(s): 03/16/24 - 03/16/24 [facility] 600 [facility] [place] - [address], [address], [address] [place] [address] [phone] Encounter Diagnosis Aortic stenosis(Discharge Diagnosis) - 03/15/24 Body mass index [BMI] 26.0-26.9, adult(Discharge Diagnosis) - 03/16/24 Discharge Disposition: Home or Self Care Attending Physician: SIERRA Waters Kathleen R Referring Physician: MD Rodriguez Kentaro Allergies, Adverse Reactions, Alerts No Known Medication Allergies Medications amLODIPine 5 mg oral tablet Start: 03/16/24 3:17:00 PM EDT, 1 tab, PO, Daily Start Date: 03/16/24 Status: Ordered atorvastatin 10 mg oral tablet Start: 03/16/24 3:16:00 PM EDT, 1 tab, PO, Daily Start Date: 03/16/24 Status: Ordered bumetanide 0.5 mg oral tablet Start: 03/16/24 3:47:00 PM EDT, 2 tab, PO, Daily, Disp# 120 tab, Refills: 5, Pharmacy: [id number] Start Date: 03/16/24 Stop Date: 03/11/25 Status: [...] Literacy Communication Barriers N ever Primary Language Luxembourger Problem List Condition Confirmation Course Effective Dates Status Health St atus Informant (aortic stenosis) Confirmed Active Diagnosis Diagnosis Type Effective Dates Health Status Cl inical Service Informant Aortic stenosis Discharge Diagnosis 03/15/24 Non-Specified Body mass index [BMI] 26.0-26.9, adult Discharge Diagnosis 03/16/24 Non-Specified Vital Signs Most recent to oldest [Reference Range]: 1 Height 155 cm (03/16/24 3:08 PM) Patient Weight 64.1 kg (03/16/24 3:08 PM) Body Mass Index 26.68 kg/m2 (03/16/24 3:08 PM) Temperature [36.5-37.9 DegC] 36.2 DegC *LOW* (03/16/24 3:08 PM) Heart Rate 84 bpm (03/16/24 3:08 PM) Respiratory Rate 14 br/min (03/16/24 3:08 PM) Blood Pressure 90/58mmHg (03/16/24 3:08 PM) Cuff Pulse Pressure 32 mmHg (03/16/24 3:08 PM) BP Location # 1 Right Arm (03/16/24 3:08 PM) Social History Social History Type Response Smoking Status Never smoked cigaret zachary Sex Female Sex Representation Female (finding)
[2024-03-21 04:45] LABS: Basophils # (auto) 0.03 K/uL (0.00-0.20); Basophils % (auto) 0.5 %; Eosinophils # (auto) 0.12 K/uL (0.00-0.50); Eosinophils % (auto) 2.1 %; Hematocrit (blood only) 28.5 % (37.0-47.0); Hemoglobin 8.7 g/dl (12.0-16.0); Immature Granulocytes # (auto) 0.03 K/uL (0.01-0.20); Immature Granulocytes % (auto) 0.5 %; Lymphocytes # (auto) 0.67 K/uL (1.20-3.40); Lymphocytes % (auto) 11.9 %; Mean Corpuscular Hgb Conc 30.5 g/dL (32.0-36.0); Mean Corpuscular Volume 81.9 fL (80.0-100.0); Mean Platelet Volume 9.4 fL (9.4-12.4); Monocytes % (auto) 10.6 %; Neutrophils % (auto) 74.4 %; Platelet Count 216 K/uL (130-400); RDW Coefficient of Variation 17.3 % (11.5-14.5); RDW Standard Deviation 50.7 fL (36.4-46.3); Red Blood Count 3.48 M/uL (4.20-5.40); White Blood Count 5.65 K/ul (4.8-10.8)
[2024-03-21 05:09] LABS: Anion Gap 5 (3-11); Calcium 8.5 mg/dl (8.6-10.3); Carbon Dioxide 27 mmol/L (21-32); Chloride 106 mmol/L (98-107); Potassium 3.8 mmol/L (3.5-5.1); Sodium 138 mmol/L (136-145)
[2024-03-21 05:15] LABS: BUN Creatinine Ratio 30.7 (10-20); Blood Urea Nitrogen 39 mg/dl (6-23); Chol HDL Ratio 2.4 (0-5); Cholesterol 79 mg/dl (0-200); Est GFR (African American) 43.3 ml/min; Est GFR (Non-African American) 37.4 ml/min; Glucose 109 mg/dl (70-99(Fasting)); HDL Cholesterol 33 mg/dl; LDL Cholesterol Calculated 25 mg/dl; Triglycerides 104 mg/dl (0-150); VLDL Cholesterol 21 mg/dl (0-30)
[2024-03-21] MEDS: LORazepam 0.5 MG TAB SL STA (06:01)
[2024-03-21 07:16] LABS: Estimated Average Glucose 97 mg/dl
[2024-03-21 07:24] LABS: Folate (Folic Acid),Ser orPlas 7.37 ng/ml (>5.38)
--- NOTE | 2024-03-21 07:45 | XRay Report ---
XR chest 1V portable HISTORY: 88 years-old Female stroke alert acute strokelike symptoms COMPARISON: None TECHNIQUE: AP view of the chest FINDINGS: Cardiac silhouette is enlarged. Aortic valvular endograft. Atherosclerosis of the aorta. Interstitial pulmonary edema. No pneumothorax. Moderate layering pleural effusions with dependent bibasilar opaci ties. Dual-lead left subclavian pacer. The bones appear intact. IMPRESSION: 1. Cardiomegaly with interstitial pulmonary edema. 2. Moderate pleural effusions with bibasilar opacities suggestive of atelectasis. ACT 112: Negative or not required by law. The above report was generated using voice recognition software. It may contain grammatical, syntax o r spelling errors. Electronically signed by: Sony Amaya M.D. 03/21/2024 7:43 AM
[2024-03-21 07:58] LABS: Troponin I High Sensitivity 237.8 pg/ml (0-14)
[2024-03-21] MEDS: LEVOTHYROXINE SODIUM 75 MCG TABLET PO SCH (08:09)
[2024-03-21] MEDS ORDERED: amLODIPine BESYLATE 5 MG TAB PO SCH (09:00)
--- NOTE | 2024-03-21 09:10 | Neurology Consultation ---
Date of Consultation March 21, 2024 Assessment & Plan (1) Bilateral leg weakness: bilateral leg weakness after a TAVR and pacemaker placement in a 88F with a PMH of HTN. On exam she is lethargic, but was recently given ativan; she follow some commands but does appear weak in the bilateral legs. CT head and CTA were unrevealing. The cause of the leg weakness is unclear and family does say it has fluctuated to some degree. Stroke is a likely possibility given recent procedure. Plan -- MRI brain without contrast -- antiplatelets per cardiology team that placed the valve -- continue home statin Telehealth Consultation Telehealth Information Telehealth Information: I performed this visit using a real-time telehealth connection between my location and the patients location ([facility]). After connecting through interactive tele-video, patient was identified by name and date of and/or wristband check.Patient (or authorized healthcare advertising account representative) was informed that this was a telemedicine visit and it was being conducted confidentially over secure lines. My office door was closed and no one else was present in the room with me.Patient (or authorized healthcare advertising account representative) provided consent to proceed with the visit, expressed an understanding of privacy and security of the telemedicine visit, and gave permi ssion to have a hospital advertising account representative in the room in order to assist with the visit and to conduct portions of the visit, as needed. I informed the patient (or authorized healthcare advertising account representative) that I reviewed their record and presented the opportunity for them to ask any questions regarding the visit today. The patient agreed to participate. History of Present Illness Reason for Consultation: bilateral leg weakness Attending Physician: Sebastian Rose MD History of Present Illness She was initally admitted at [facility] for pacemaker placement but after started to have significant SOB. She was then sent to [place] for a TAVR. After discharge from [place] her legs became very weak, she was unable to move the right leg. She can provide no further history. Allergies Allergy/AdvReac Type Severity Reaction Status Date / Time No Known Allergies Allergy Unverified 03/21/24 02:52 Home Medications Medication Instructions Recorded Confirmed Type amlodipine 2.5 mg tablet 2.5 mg PO DAILY 03/21/24 03/21/24 History atorvastatin 10 mg tablet 10 mg PO DAILY 03/21/24 03/21/24 History bumetanide 0.5 mg tablet 1 mg PO DAILY 03/21/24 03/21/24 History cholecalciferol (vitamin D3) 125 125 mcg PO DAILY 03/21/24 03/21/24 History mcg (5,000 unit) tablet (Vitamin D3) cyanocobalamin (vitamin B-12) 1,000 mcg PO DAILY 03/21/24 03/21/24 History 1,000 mcg tablet levothyroxine 75 mcg tablet 75 mcg PO DAILY 03/21/24 03/21/24 History losartan 50 mg tablet 50 mg PO DAILY 03/21/24 03/21/24 History potassium chloride 10 mEq 10 meq PO DAILY 03/21/24 03/21/24 History tablet,extended release Patient History Medical History Hypothyroidism Hypertension Surgical History S/P AVR (aortic valve replacement) Social History Smoking Status: Never smoker Hx Alcohol Use: Yes Alcohol type: wine Hx Substance Use: No Preferred Language: Nepali Communication Ability: Effective Admissions Dean Required: No Beliefs That Will Affect Care: Scientologist Scientologist Beliefs: Denominational Current Living Situation: Spouse Other Information That Helps Us Care for You: No Feels Safe at Home: Yes Safety Concerns: Feels Safe At This Time Review of Systems unable to obtain secondary to encephalopathy Physical Exam NEUROLOGIC EXAMINATION: Mental Status:lerthargic, required repeated stimulation to maintain arousal, orientated to person only, speech appears intact Cranial Nerves: CN 2 - no visual defect on confrontation and pupils round, equal, reactive to light CN 3, 4, 6 - extra-ocular movements intact and no nystagmus CN 5 - facial sensation intact CN 7 - no facial asymmetry CN 8 - intact hearing CN 9, 10 - palate symmetric, normal gag CN 11 - good shoulder shrug CN 12 - tongue midline MOTOR: Holds arms antigravity, extends legs at the knee but unable to hold legs antigravity SENSATION: intact and symmetric to light touch COORDINATION: ekaterina REFLEXES: cannot assess over telemedicine Results & Data Vital Signs (Past 12 Hours) Vital Signs Pulse Pulse Resp BP BP Pulse Ox O2 Del Method 03/21/24 05:30 74 18 111/74 96 Room Air 03/21/24 00:39 73 03/20/24 21:09 95 H 94 03/20/24 21:07 129/70 03/20/24 21:07 129/70 Laboratory Results Abnormal Lab Results 03/20/24 03/20/24 03/21/24 21:27 21:33 01:36 WBC 8.29 RBC 3.82 L Hgb 9.6 L POC Hgb 9.5 L Hct 31.4 L POC Hct 28 L MCV 82.2 MCH 25.1 MCHC 30.6 L RDW Std Deviation 50.7 H RDW Coeff of Priscilla 17.4 H Plt Count 248 MPV 9.5 Immature Gran % (Auto) Neut % (Auto) Lymph % (Auto) Banner % (Auto) Eos % (Auto) Baso % (Auto) Neut # (Auto) Lymph # (Auto) Banner # (Auto) Eos # (Auto) Baso # (Auto) Immature Gran # (Auto) PT 12.6 H INR 1.2 H APTT 27 PTT Ratio 1.0 POC Sodium 141 Sodium 136 POC Potassium 4.3 Potassium 4.2 POC Chloride 107 Chloride 104 Carbon Dioxide 24 POC Total CO2 25 Anion Gap 8 POC Anion Gap 15.0 L POC BUN 44 H BUN 44 H Creatinine 1.39 H POC Creatinine 1.5 H Est Cr Clr Drug Dosing Not Reportable Est GFR ( Amer) 38.8 Est GFR (Non-Af Amer) 33.5 BUN/Creatinine Ratio 31.7 H Glucose 153 H POC Glucose (other) 153 H Estimat Average Glucose Hemoglobin A1c Calcium 8.9 POC Ioniz Calcium Rosio 1.17 Magnesium 2.0 Iron TIBC Unsaturated IBC Transferrin % Sat Total Bilirubin 1.4 H AST 20 ALT 15 Alkaline Phosphatase 76 Troponin I High Sens 317.7 H* Total Protein 6.2 Albumin 3.4 Globulin 2.8 Albumin/Globulin Ratio 1.2 Triglycerides Cholesterol LDL Cholesterol, Calc VLDL Cholesterol, Calc HDL Cholesterol Cholesterol/HDL Ratio Vitamin B12 Folate Urine Color Yellow Urine Appearance Clear Urine pH 5.0 Ur Specific Etna 1.034 H Urine Protein Negative Urine Glucose (UA) Negative Urine Ketones Negative Urine Blood 1+ H Urine Nitrite Negative Urine Bilirubin Negative Urine Urobilinogen Negative Ur Leukocyte Esterase Negative Urine WBC (Auto) 0-5 Urine RBC (Auto) 6-10 H U Hyaline Cast (Auto) 3-5 H U Epithel Cells (Auto) 0-2 Urine Bacteria (Auto) None Seen 03/21/24 04:31 WBC 5.65 RBC 3.48 L Hgb 8.7 L POC Hgb Hct 28.5 L POC Hct MCV 81.9 MCH 25.0 MCHC 30.5 L RDW Std Deviation 50.7 H RDW Coeff of Prisiclla 17.3 H Plt Count 216 MPV 9.4 Immature Gran % (Auto) 0.5 Neut % (Auto) 74.4 Lymph % (Auto) 11.9 Banner % (Auto) 10.6 Eos % (Auto) 2.1 Baso % (Auto) 0.5 Neut # (Auto) 4.20 Lymph # (Auto) 0.67 L Banner # (Auto) 0.60 H Eos # (Auto) 0.12 Baso # (Auto) 0.03 Immature Gran # (Auto) 0.03 PT INR APTT PTT Ratio POC Sodium Sodium 138 POC Potassium Potassium 3.8 POC Chloride Chloride 106 Carbon Dioxide 27 POC Total CO2 Anion Gap 5 POC Anion Gap POC BUN BUN 39 H Creatinine 1.27 H POC Creatinine Est Cr Clr Drug Dosing Not Reportable Est GFR ( Amer) 43.3 Est GFR (Non-Af Amer) 37.4 BUN/Creatinine Ratio 30.7 H Glucose 109 H POC Glucose (other) Estimat Average Glucose 97 Hemoglobin A1c 5.0 Calcium 8.5 L POC Ioniz Calcium Rosio Magnesium Iron 11 L TIBC 207 L Unsaturated IBC 196 Transferrin % Sat 5 L Total Bilirubin AST ALT Alkaline Phosphatase Troponin I High Sens 237.8 H* D Total Protein Albumin Globulin Albumin/Globulin Ratio Triglycerides 104 Cholesterol 79 LDL Cholesterol, Calc 25 VLDL Cholesterol, Calc 21 HDL Cholesterol 33 Cholesterol/HDL Ratio 2.4 Vitamin B12 1188 H Folate 7.37 Urine Color Urine Appearance Urine pH Ur Specific Etna Urine Protein Urine Glucose (UA) Urine Ketones Urine Blood Urine Nitrite Urine Bilirubin Urine Urobilinogen Ur Leukocyte Esterase Urine WBC (Auto) Urine RBC (Auto) U Hyaline Cast (Auto) U Epithel Cells (Auto) Urine Bacteria (Auto) Diagnostic Findings Chest X-Ray 03/20/24 19:01 XR chest 1V portable HISTORY: 88 years-old Female stroke alert acute strokelike symptoms COMPARISON: None TECHNIQUE: AP view of the chest FINDINGS: Cardiac silhouette is enlarged. Aortic valvular endograft. Atherosclerosis of the aorta. Interstitial pulmonary edema. No pneumothorax. Moderate layering pleural effusions with dependent bibasilar opacities. Dual-lead left subclavian pacer. The bones appear intact. IMPRESSION: 1. Cardiomegaly with interstitial pulmonary edema. 2. Moderate pleural effusions with bibasilar opacities suggestive of atelectasis. ACT 112: Negative or not required by law. The above report was generated using voice recognition software. It may contain grammatical, syntax or spelling errors. Electronically signed by: Sony Amaya M.D. 03/21/2024 7:[address] 03/20/24 19:01 CR Exam(s): CT HEAD Without Contrast EXAM: CT Head Without Intravenous Contrast CLINICAL HISTORY: Reason for exam: Neuro deficit, acute, stroke suspected. TECHNIQUE: Axial computed tomography images of the head/brain without intravenous contrast. CTDI is 31.88 mGy and DLP is 1179.85 mGy-cm. Automated exposure control was utilized for the study. A dose lowering technique was utilized adhering to the principles of ALARA. COMPARISON: No relevant prior studies available. FINDINGS: This study is limited secondary to motion artifact. Brain: Unremarkable. No hemorrhage. Advanced nonspecific white matter changes.. No edema. Ventricles: Unremarkable. No ventriculomegaly. Bones/joints: Unremarkable. No acute fracture. Soft tissues: Unremarkable. Sinuses: Unremarkable as visualized. No acute sinusitis. Mastoid air cells: Unremarkable as visualized. No mastoid effusion. IMPRESSION: No evidence of acute intracranial pathology. Communications: Call Doctor Stroke Electronically signed by: Naya Mckeon MD 03/20/24 23:02 PM Head CTA 03/20/24 21:16 CR Exam(s): CTA HEAD With Contrast IV Amt: 117 cc opti 320 EXAM: CT Angiography Head With Intravenous Contrast CLINICAL HISTORY: Reason for exam: BLE weakness. TECHNIQUE: Axial computed tomographic angiography images of the head with intravenous contrast. CTDI is 31.88 mGy and DLP is 1179.85 mGy-cm. Automated exposure control was utilized for the study. A dose lowering technique was utilized adhering to the principles of ALARA. MIP reconstructed images were created and reviewed. CONTRAST: Patient received 117 cc opti 320 of IV contrast COMPARISON: No relevant prior studies available. FINDINGS: The dural venous sinuses are patent. Right internal carotid artery: No acute findings. Intracranial segment is patent with no significant stenosis. No aneurysm. Right anterior cerebral artery: Unremarkable. No occlusion or significant stenosis. No aneurysm. Right middle cerebral artery: Unremarkable. No occlusion or significant stenosis. No aneurysm. Right posterior cerebral artery: Unremarkable. No occlusion or significant stenosis. No aneurysm. Right vertebral artery: Unremarkable as visualized. Left internal carotid artery: No acute findings. Intracranial segment is patent with no significant stenosis. No aneurysm. Left anterior cerebral artery: Unremarkable. No occlusion or significant stenosis. No aneurysm. Left middle cerebral artery: Unremarkable. No occlusion or significant stenosis. No aneurysm. Left posterior cerebral artery: Unremarkable. No occlusion or significant stenosis. No aneurysm. Left vertebral artery: Unremarkable as visualized. Basilar artery: Unremarkable. No occlusion or significant stenosis. No aneurysm. IMPRESSION: Negative CT angiogram of the head. Communications: Verify Receipt Call Doctor Stroke Electronically signed by: Naya Mckeon MD 03/20/24 23:05 PM Neck CTA 03/20/24 21:16 CR Exam(s): CTA NECK With Contrast IV Amt: 117 cc opti 320 EXAM: CT Angiography Neck With Intravenous Contrast CLINICAL HISTORY: Reason for exam: BLE weakness. TECHNIQUE: Routine carotid CT angiography protocol was performed with intravenous contrast. NASCET criteria using the distal ICAs for comparison were used for evaluation of stenoses. CTDI is 31.88 mGy and DLP is 1179.85 mGy-cm. Automated exposure control was utilized for the study. A dose lowering technique was utilized adhering to the principles of ALARA. MIP reconstructed images were created and reviewed. CONTRAST: Patient received 117 cc opti 320 of IV contrast COMPARISON: None. FINDINGS: VASCULATURE: Aberrant right subclavian artery. Right common carotid artery: Unremarkable. No occlusion or significant stenosis. No dissection. Right internal carotid artery: Unremarkable. Extracranial segment is patent with no occlusion or significant stenosis. No dissection. Right external carotid artery: Unremarkable. No occlusion. Right vertebral artery: Unremarkable. No occlusion or significant stenosis. No dissection. Left common carotid artery: Unremarkable. No occlusion or significant stenosis. No dissection. Left internal carotid artery: Unremarkable. Extracranial segment is patent with no occlusion or significant stenosis. No dissection. Left external carotid artery: Unremarkable. No occlusion. Left vertebral artery: Unremarkable. No occlusion or significant stenosis. No dissection. NECK: Bones/joints: Unremarkable. No acute fracture. Soft tissues: Prominent mediastinal and hilar lymph nodes. Lung apices: Bronchitis with pneumonitis and bilateral pleural effusions. CAROTID STENOSIS REFERENCE USING NASCET CRITERIA: % ICA stenosis = (1 - narrowest ICA diameter/diameter of distal cervical ICA) x 100. Mild - <50% stenosis. Moderate - 50-69% stenosis. Severe - 70-94% stenosis. Near occlusion - 95-99% stenosis. Occluded - 100% stenosis. IMPRESSION: Negative CTA neck. Communications: Verify Receipt Call Doctor Stroke Electronically signed by: Naya Mckeon MD 03/20/24 23:09 PM
[2024-03-21] MEDS: SODIUM CHLORIDE 0.9% 1,000 ML IV SCH (09:18)
[2024-03-21] MEDS: LOSARTAN POTASSIUM 50 MG TAB PO SCH (09:28)
[2024-03-21] MEDS: IRON SUCROSE 300 MG in SODIUM CHLORIDE 0.9% 250 ML IV ONE (09:28)
[2024-03-21] MEDS: CYANOCOBALAMIN (B-12) 500 MCG TABLET PO SCH (09:29)
[2024-03-21] MEDS: ATORVASTATIN 10 MG TAB PO SCH (09:29)
[2024-03-21] MEDS: CHOLECALCIFEROL 125 MCG (5,000 UNITS) TAB PO SCH (09:29)
[2024-03-21] MEDS: BUMETANIDE 1 MG TAB PO SCH (09:29)
[2024-03-21] MEDS: POTASSIUM CHLORIDE 10 MEQ TABCR PO SCH (09:33)
--- NOTE | 2024-03-21 09:57 | Cardiology Consultation ---
Date of Consultation March 21, 2024 Assessment & Plan (1) Weakness: (2) Elevated troponin: (3) S/P TAVR (transcatheter aortic valve replacement): Plan Assessment: 88 year old female admitted for severe weakness, right worse than left. Acute CT negative. Recent TAVR. Plan: 1. Weakness: -Multifactorial in the setting of recent TAVR -Low H/H, low iron-transferrin, receiving IV infusion now. -Echo today demonstrates severely reduced LVEF of 20-25%, ? Takotsubo pattern. No prior echos for review to know her most recent LVEF. She is s/p PPM in December 2023 and underwent a TAVR last week. -Request of records from both [facility] as patient had recent PPM with Dr. Monreal December 2023 -request of records from [facility] from recent hospitalization (DC date 03/19). -Need last OV note, most recent Echo, Cardiac cath (from pre-TAVR work up) -Andre device, obtain interrogation and will need to contact company for MRI capability to complete stroke work up 2. Elevated Troponin: 3. s/P TAVR -Suspect s/t recent TAVR in the past week in the absence of acute EKG changes and no symptoms of chest pain or anginal equivalent. -Concern is echo showing severely reduced LVEF, suspect stress induced, but need prior records for comparison. Fortunately, TAVR demonstrates normal function and gradients -Troponin trending down -Will refrain from initiating Heparin gtt at this time and discuss case with attending. -BP controlled. -No acute events on telemetry. -Patient does not demonstrate hypervolemia on exam. -Continue Amlodipine, Bumex, Losartan, Atorvastatin and potassium supplementation per current regimen. Case has been discussed with Dr. Mcnamara. Further recommendations regarding plan of care as per his assessment. I spent a total of 40 minutes on the date of service in preparation, delivery, documentation of the care provided to the patient excluding any time spent in the performance of separately billed services. [facility] Card[facility] Supervising Physician Co-Signing Physician Notes I have reviewed the advanced practitioner's documentation on the date of service referenced in note, and I agree with, and take responsibility for the plan of care. I spent a total of [40] minutes coordinating, documenting, and providing care for this patient excluding time spent in the performance of separately billed services or time spent by another provider. 88-year-old female was initially found to have low heart rate in December at regular PCP workup, she was sent to [facility] underwent a temporary pacer single wire followed by permanent pacemaker. She was also noted to have aortic valve stenosis at that time. Family has taken her to [facility] last week for further evaluation . She was noted to have severe aortic valve stenosis was admitted and underwent TAVR on March 19 and discharged on March 20, 2024. No records are available. As per family patient was very weak was unable to stand by herself. Her son was transporting her to home - [place] . However patient had incontinence needed to have a change of clothes, this stopped at son's house in [place]. Son had a very hard time getting her back into the vehicle was very stressful for both patient and family. Patient was very weak tired in the car they were concerned and came to [facility] emergency room. As per family her lower extremity swelling has worsened after TAVR she has been unable to walk. Has been lethargic falls asleep during conversation. Echo today shows reduced ejection fraction with Takotsubo pattern picks and distal segments are severely hypokinetic than basal segments , TAVR valve gradients are not within normal limits. Family does not know if EF previously was low or normal. Records are not available. If there is drop in EF is new possible stress cardiomyopathy and will need a repeat echo in a week Continue with gentle diuresis Start aspirin 81 mg daily Elevated troponins which are downtrending no anginal symptoms Concern for stroke will hold off on heparin discussed with family at bedside plan to start toprol xl in am , discontinue Norvasc History of Present Illness Reason for Consultation: Elevated Troponin Requesting Physician: Ronaldo Navarro Attending Physician: Sebastian Rose MD History of Present Illness HPI: 88 year old female with PMHx significant for SSS s/p PPM at [facility] 01/10/2024, HTN, HLD, severe s/p TAVR, and Hypothyroidism presents to the ED for complaints of weakness. Patient recently underwent TAVR procedure at [facility] on ? 03/18/24 and was discharged home on 03/19/2024. Family stated that patient was weak at time of discharge. Family reports that she was struggling to life her left leg, but was dragging her right leg. She was unable to ambulate at all, which prior to procedure was ambulating with a cane. Also endorsed bilateral arm weakness. There are no Cardiac records available for re view in the [facility] or [employer] system. CT head negative for acute process. Will need MRI, but unable to do until Saturday s/t PPM per hospitalist. Device is a [employer] P/G Model [id number] Serial number [id number] EKG on admission demonstrates V-Paced rhythm H/H today 8.7/28.5 HST 317.7/237.8 (Patient s/p TAVR this week) Chest xray: IMPRESSION: 1. Cardiomegaly with interstitial pulmonary edema. 2. Moderate pleural effusions with bibasilar opacities suggestive of atelectasis. Patient is resting in bed at this time. She is very hard of hearing at baseline. Denies any chest pain, pressure or palpitations, no dyspnea or PND, no presncope or syncope. She doesn't feel her legs are swollen, but states that her family tells her they are. She is currently receiving IV iron infusion at time of exam. review of telemetry shows Paced rhythm. No acute events overnight. Spouse and son are in the hospital, but have left the room to get breakfast. will attempt to contact them for further information. Allergies Allergy/AdvReac Type Severity Reaction Status Date / Time No Known Allergies Allergy Unverified 03/21/24 02:52 Home Medications Medication Instructions Recorded Confirmed Type amlodipine 2.5 mg tablet 2.5 mg PO DAILY 03/21/24 03/21/24 History atorvastatin 10 mg tablet 10 mg PO DAILY 03/21/24 03/21/24 History bumetanide 0.5 mg tablet 1 mg PO DAILY 03/21/24 03/21/24 History cholecalciferol (vitamin D3) 125 125 mcg PO DAILY 03/21/24 03/21/24 History mcg (5,000 unit) tablet (Vitamin D3) cyanocobalamin (vitamin B-12) 1,000 mcg PO DAILY 03/21/24 03/21/24 History 1,000 mcg tablet levothyroxine 75 mcg tablet 75 mcg PO DAILY 03/21/24 03/21/24 History losartan 50 mg tablet 50 mg PO DAILY 03/21/24 03/21/24 History potassium chloride 10 mEq 10 meq PO DAILY 03/21/24 03/21/24 History tablet,extended release Patient History Medical History Hypothyroidism Hypertension Surgical History S/P AVR (aortic valve replacement) Social History Smoking Status: Never smoker Hx Alcohol Use: Yes Alcohol type: wine Hx Substance Use: No Preferred Language: [place] Communication Ability: Effective Compliance Mgr Required: No Beliefs That Will Affect Care: Muslim Muslim Beliefs: Lutheran Current Living Situation: Spouse Other Information That Helps Us Care for You: No Feels Safe at Home: Yes Safety Concerns: Feels Safe At This Time Review of Systems Review of Systems: All systems reviewed & are unremarkable except as noted in HPI & below Physical Exam Constitutional: + frail appearing; no acute distress and not ill appearing ENMT: Ears: + hearing impairment Neck: normal visual inspection and trachea midline Respiratory: normal respiratory effort; no respiratory distress and no labored breathing Auscultation: + diminished lung sounds (bilteral bases ); no crackles, no rales, no rhonchi and no wheezes Cardiovascular: Rate/Rhythm: regular rate and regular rhythm Heart Sounds: normal S1, normal S2 and + murmur (+I/ systolic) Vessels: dorsalis pedis pulses present; no JVD Extremities: + edema (trace BLE) Skin: no rashes, warm and dry Psychiatric: A+Ox3, euthymic affect (very hard of hearing ) Results & Data Vital Signs (Past 12 Hours) Vital Signs Pulse Pulse Resp BP Pulse Ox O2 Del Method 03/21/24 09:34 84 24 123/70 94 Room Air 03/21/24 05:30 74 18 111/74 96 Room Air 03/21/24 00:39 73 Laboratory Results Cardiac Enzymes 03/20/24 03/21/24 03/21/24 Range/Units 21:27 04:31 12:35 AST 20 (13-39) U/L Troponin I High Sens 317.7 H* 237.8 H* D 203.5 H* (0-14) pg/ml Coagulation 09/20/24 Range/Units 21:27 PT 12.6 H (9.0-12.0) Seconds APTT 27 (21-31) Seconds Lipids 03/21/24 Range/Units 04:31 Triglycerides 104 (0-150) mg/dl Cholesterol 79 (0-200) mg/dl HDL Cholesterol 33 mg/dl Cholesterol/HDL Ratio 2.4 (0-5) CBC 03/20/24 03/21/24 Range/Units 21:27 04:31 WBC 8.29 5.65 (4.8-10.8) K/ul RBC 3.82 L 3.48 L (4.20-5.40) M/uL Hgb 9.6 L 8.7 L (12.0-16.0) g/dl Hct 31.4 L 28.5 L (37.0-47.0) % Plt Count 248 216 (130-400) K/uL Neut # (Auto) 4.20 (1.40-6.50) K/uL Lymph # (Auto) 0.67 L (1.20-3.40) K/uL [place] # (Auto) 0.60 H (0.11-0.59) K/uL Eos # (Auto) 0.12 (0.00-0.50) K/uL Baso # (Auto) 0.03 (0.00-0.20) K/uL Comprehensive Metabolic Panel 03/20/24 03/21/24 Range/Units 21:27 04:31 Sodium 136 138 (136-145) mmol/L Potassium 4.2 3.8 (3.5-5.1) mmol/L Chloride 104 106 (98-107) mmol/L Carbon Dioxide 24 27 (21-32) mmol/L BUN 44 H 39 H (6-23) mg/dl Creatinine 1.39 H 1.27 H (0.6-1.2) mg/dl Glucose 153 H 109 H (70-99(Fasting)) mg/dl Calcium 8.9 8.5 L (8.6-10.3) mg/dl AST 20 (13-39) U/L ALT 15 (7-52) U/L Alkaline Phosphatase 76 (34-104) U/L Total Protein 6.2 (6.0-8.3) gm/dl Albumin 3.4 (3.4-5.0) gm/dl Intake and Output 03/20/24 03/21/24 03/21/24 22:59 06:59 14:59 Intake Total 265 / 265 Balance 265 / 265 Intake: IV 265 / 265 Iron Sucrose 300 mg In Sodium 265 / 265 Chloride 0.9% 250 ml @ 176.667 mls/hr IV TODAY ONE Rx#: [id number] Diagnostic Findings Echocardiogram today: LVEF 25-30% Severe hypokinesis of the apex, distal to mid left ventricular segments. basal segments hypokinetic RV systolic function mildly reduced. s/p TAVR with normal function Aortic mean gradient of 7, Vmax 2m/sec Moderate MR, mild MS Mild to moderate TR PASP 30-40mmHg
--- NOTE | 2024-03-21 11:30 | Electrocardiogram Report ---
Test Reason : Blood Pressure : */* mmHG Vent. Rate : 81 BPM Atrial Rate : 81 BPM P-R Int : * ms QRS Dur : 176 ms QT Int : 438 ms P-R-T Axes : 37 -64 110 degrees QTcB Int : 508 ms Ventricular-paced rhythm Abnormal ECG No previous ECGs available Confirmed by Karri Mariee ([id number]) on 03/21/2024 11:29:56 AM Referred By: Confirmed By: Karri Mariee
--- NOTE | 2024-03-21 14:48 | Hospitalist Progress Note ---
Date of Service March 21, 2024 Assessment & Plan (1) Weakness: Plan: 88-year-old female with past medical history significant for hypertension, hyperlipidemia, hypothyroidism, history of bradycardia status post pacemaker last year at the [facility] and on 03/18/2024 she had had TAVR procedure for aortic valve at [facility] and was discharged on 03/19/2024 was brought in by and son because of weakness. As per son at the time of d ischarge patient was weak but was got discharged and son took her to his home. Before admitted to [facility] patient was ambulating okay sometimes used to use cane. But since she was discharged from [facility] patient is not at all ambulating. She is able to lift her left leg somewhat but right leg she is dragging. Her upper extremities also seemed very weak. This reason family brought her back to the hospital. Patient is currently sleeping. Very hard of hearing. Could tell her name. Knows that she is in the hospital. Can tell her date of . But could not tell current dates. She denies any chest pain or abdominal pain. Denies nausea or shortness of breath. Could not get much history from the patient as currently is sleepy. As per the family prior to surgery she was not eating much but after surgery she had two good meals. And she is swallowing okay. Before surgery she was getting short of breath but after surgery her shortness of breath seemed improved. family not sure that she had a CHF. But taking Bumex. Family denies any cardiac stents.Family says patient has on and off confusion going on for some time but not sure if she has dementia. Patient is afebrile. As per family no nausea or vomiting. Family does not know whether she has any diarrhea.. As per patient has urinary incontinence. Son is somewhat concerned that patient might had stroke. No runny nose or sore throat or cough. Vision is okay. Currently hemodynamics are okay. Family helped with H and P. Son lives in [place]. Patient and her live in [place]. Bilateral leg weakness Likely due to comorbidities/deconditioning from recent TAVR Rule out stroke --CT Head:No evidence of acute intracranial pathology. --Head CTA:Negative CT angiogram of the head. --Neck CTA:Negative CTA neck. --ECHO: Reviewed MRI brain pending Continue Neurochecks Appreciate neurology input PT OT as able Normocytic anemia Iron deficiency anemia Unknown baseline hemoglobin Anemia workup reviewed Received IV Venofer Check fecal occult Lower extremity edema ? Acute Vs chronic systolic CHF Vs Takotsubo Unknown baseline continue Bumex Monitor volume status Elevated troponin EKG showed ventricular paced rhythm ECHO: EF 25 to 30%. Severe hypokinesis of the apex, distal to mid left ventricular segments, the basal segments are mildly hypokinetic. Right ventricle systolic function is mildly reduced. S/P TAVR with normal function. Aortic valve mean gradient of 7, V-max 2m/sec. moderate mitral regurgitation. Mild mitral stenosis. Mild to moderate tricuspid regurgitation. Right ventricle systolic pressure is elevated to be 30 to 40 mmHg. Obtain old records for echo comparison Continue home medications Appreciate cardiology input LY versus CKD Cr 1.3>1.2 Unknown baseline renal function Monitor renal function Avoid nephrotoxic agents as able Hypertension Continue losartan Hold amlodipine for now as blood pressure relatively low Monitor BP Hyperlipidemia On statin Hypothyroidism Check TSH Continue levothyroxine DVT Px: SCDs Heparin SQ CODE STATUS Full code Admission and Anticipated Discharge Date Admission Date: March 21, 2024 Subjective Patient is seen and examined at bedside Drowsy during my encounter Delirious overnight Discussed with patient's family at bedside Admits to having some dyspnea, nausea and dizziness Unable to obtain much history Review of Systems Review of Systems: All systems reviewed & are unremarkable except as noted in Subjective Physical Exam Physical Exam: Physical Exam: Vitals signs as noted above General Appearance:Moderately built and nourished, ill-appearing, no apparent distress, frail, elderly, Head: normocephalic, Atraumatic Eyes: normal inspection, EOMI Neck: supple, Trachea midline Respiratory/Chest: Decreased breath sounds, CTA, No accessory muscle use Cardiovascular: S1, S2, +murmur Abdomen/GI:Soft, Non tender, Bowel sounds present Extremities/Musculoskeletal:normal inspection, 1+edema Neurologic/Psych: Alert, awake, drowsy, unable to perform complete neurological exam, decreased hearing Skin: normal color, warm Results & Data Results & Data Vital Signs (Past 12 Hours) Vital Signs Pulse Resp BP Pulse Ox O2 Del Method 03/21/24 13:00 Room Air 03/21/24 12:37 86 22 121/73 95 Room Air 03/21/24 10:00 80 22 119/63 94 Room Air 03/21/24 09:34 84 24 123/70 94 Room Air 03/21/24 05:30 74 18 111/74 96 Room Air Laboratory Results Short CBC 03/20/24 03/21/24 Range/Units 21:27 04:31 WBC 8.29 5.65 (4.8-10.8) K/ul Hgb 9.6 L 8.7 L (12.0-16.0) g/dl Hct 31.4 L 28.5 L (37.0-47.0) % Plt Count 248 216 (130-400) K/uL BMP 03/20/24 03/21/24 21:27 04:31 Sodium 136 138 Potassium 4.2 3.8 Chloride 104 106 Carbon Dioxide 24 27 BUN 44 H 39 H Creatinine 1.39 H 1.27 H Glucose 153 H 109 H Calcium 8.9 8.5 L Liver Function 03/20/24 Range/Units 21:27 Total Bilirubin 1.4 H (0.2-1.0) mg/dl AST 20 (13-39) U/L ALT 15 (7-52) U/L Alkaline Phosphatase 76 (34-104) U/L Albumin 3.4 (3.4-5.0) gm/dl Urine 03/21/24 Range/Units 01:36 Urine Color Yellow Urine Appearance Clear (Clear) Urine pH 5.0 (4.5-7.5) Ur Specific [place] 1.034 H (1.000-1.030) Urine Protein Negative (Negative) Urine Glucose (UA) Negative (Negative)
[2024-03-21] MEDS: ACETAMINOPHEN 325 MG TAB PO PRN (15:32)
[2024-03-21] MEDS: HEPARIN SOD 5,000 UNIT/0.5 ML VIAL SQ SCH (20:48)
[2024-03-21] MEDS: ASPIRIN 81 MG ECTAB PO SCH (20:53)
[2024-03-22 06:59] LABS: BUN Creatinine Ratio 29.2 (10-20); Calcium 8.6 mg/dl (8.6-10.3); Creatinine Clr Calc Pharmacy 32.3 ml/min; Est GFR (African American) 53.9 ml/min; Est GFR (Non-African American) 46.5 ml/min; Potassium 3.7 mmol/L (3.5-5.1)
[2024-03-22 07:15] LABS: Thyroid Stimulating Hormone 1.346 uIu/ml (0.300-4.500)
--- NOTE | 2024-03-22 08:07 | Cardiology Progress Note ---
Date of Service March 22, 2024 Assessment & Plan (1) Weakness: (2) Elevated troponin: (3) S/P TAVR (transcatheter aortic valve replacement): Plan Assessment: 88 year old female admitted for severe weakness, right worse than left. Acute CT negative. Recent TAVR. Plan: 1. Weakness: -Multifactorial in the setting of recent TAVR -Low H/H, low iron-transferrin, receiving IV infusion now. -Echo today demonstrates severely reduced LVEF of 20-25%, ? Takotsubo pattern. No prior echos for review to know her most recent LVEF. She is s/p PPM in December 2023 and underwent a TAVR last week. -Request of records from both [facility] as patient had recent PPM with Dr. Monreal December 2023 -request of records from [facility] from recent hospitalization (DC date 03/19). -Need last OV note, most recent Echo, Cardiac cath (from pre-TAVR work up) -[employer] device, obtain interrogation and will need to contact company for MRI capability to complete stroke work up 2. Elevated Troponin: 3. s/P TAVR -Suspect s/t recent TAVR in the past week in the absence of acute EKG changes and no symptoms of chest pain or anginal equivalent. -Concern is echo showing severely reduced LVEF, suspect stress induced, but need prior records for comparison. Fortunately, TAVR demonstrates normal function and gradients -Troponin trending down -Will refrain from initiating Heparin gtt at this time and discuss case with attending. -BP controlled. -No acute events on telemetry. -Patient does not demonstrate hypervolemia on exam. -Continue Amlodipine, Bumex, Losartan, Atorvastatin and potassium supplementation per current regimen. 03/22/2024: -Patient is feeling well today. Much more awake and interactive. -Family is at bedside with an extensive list of questions from who will manage her care post discharge, why a weak heart pump, is her new valve ok most significant. -Reviewed testing including echocardiogram with shows a severely reduced LVEF with a takotsubo pattern. Son states that she has been under a tremendous amount of stress, not just from her valve surgery last week, but her brother and his the was on her day of surgery. -She appears to have some increased strength in her right leg in comparison to yesterday. -[employer] rep to interrogate PPM, and need to determine if it is a MRI compatible device as primary team would like to proceed with a brain MRI to rule out stroke. -Not pursuing heparin gtt due to troponin trending down, no acute EKG changes, and patient is in the middle of a stroke workup. -No acute events on telemetry -Patient appear euvolemic on exam. Continue bumex, Losartan and start Toprol xl 12.5mg Qam. Continue to hold amlodipine. -Family is discussing their plan for OP follow up. Patient [place] in the [place] area. Son resides in [place]. Spouse does not drive due to macular degeneration. They are aware that they have a post TAVR follow up 1 month in [place], which is important to keep. Advised that they may choose to follow with any general cardiology group. they are interested in staying with [facility], but are hoping they can be seen at the [facility] office due to transportation issues. I do not see an issue with this, but told them just to be sure to let us know prior to discharge so we can ensure she gets established OP cardiac care. Case has been discussed with Dr. Mcnamara. Further recommendations regarding plan of care as per her assessment. I spent a total of 40 minutes on the date of service in preparation, delivery, documentation of the care provided to the patient excluding any time spent in the performance of separately billed services. SIERRA Siu [facility] Admission and Anticipated Discharge Date Admission Date: March 21, 2024 Supervising Physician Co-Signing Physician Notes I have reviewed the advanced practitioner's documentation on the date of service referenced in note, and I agree with, and take responsibility for the plan of care. I spent a total of [40] minutes coordinating, documenting, and providing care for this patient excluding time spent in the performance of separately billed services or time spent by another provider. 88-year-old female was initially found to have low heart rate in December at regular PCP workup, she was sent to [facility] underwent a temporary pacer wire followed by permanent pacemaker. She was also noted to have aortic valve stenosis at that time. Family has taken her to [facility] last week for further evaluation . She was noted to have severe aortic valve stenosis was admitted and underwent TAVR on March 19 and discharged on March 20, 2024. No records are available. family had a hard time with transporting her home to [place] from [place] , she was very weak unable to get the vehicle or walk . they brought her to the ER . Echo shows reduced ejection fraction with Takotsubo pattern apex and distal segments are severely hypokinetic than basal segments , TAVR valve gradients are not within normal limits. No prior echo available. awating records from [place] If low EF is new possible stress cardiomyopathy continue aspirin 81 mg daily Patient volume status is improved. Currently on Bumex 1 mg will likely need to reduce the dose Start Toprol-XL 2012.5 mg and increase as tolerated Continue with losartan Discontinue Norvasc Subjective 03/22/2024:Patient seen and examined in follow up today. Feeling "much better". She is sitting up in bed eating lunch and offers no cardiac complaints. patient's spouse and son are also present in the room. Labs, vitals, diagnostics, telemetry and documentation reviewed. Telemetry reviewed showing Paced 60-70's. No acute events overnight. Troponin trending down -565cc fluid deficit this morning Review of Systems Review of Systems: All systems reviewed & are unremarkable except as noted in HPI & below Physical Exam Constitutional: + frail appearing; no acute distress and not ill appearing ENMT: Ears: + hearing impairment Neck: normal visual inspection and trachea midline Respiratory: normal respiratory effort; no respiratory distress and no labored breathing Auscultation: + diminished lung sounds (bilteral bases ); no crackles, no rales, no rhonchi and no wheezes Cardiovascular: Rate/Rhythm: regular rate and regular rhythm Heart Sounds: normal S1, normal S2 and + murmur (+I/ systolic) Vessels: dorsalis pedis pulses present; no JVD Extremities: + edema (trace BLE) Skin: no rashes, warm and dry Psychiatric: A+Ox3, euthymic affect (very hard of hearing ) Results & Data Vital Signs (Past 12 Hours) Vital Signs Temp Pulse Pulse Resp BP Pulse Ox O2 Del Method 03/22/24 07:00 Nasal Cannula 03/22/24 07:00 36.6 C 64 16 128/81 94 Room Air 03/22/24 03:33 36.7 C 61 20 113/61 94 Room Air 03/21/24 23:38 73 03/21/24 23:26 36.6 C 76 19 117/57 L 100 Room Air 03/21/24 22:26 Nasal Cannula O2 Flow Rate 03/22/24 07:00 2 03/22/24 07:00 03/22/24 03:33 03/21/24 23:38 03/21/24 23:26 03/21/24 22:26 2 Laboratory Results Cardiac Enzymes 03/21/24 Range/Units 17:48 Troponin I High Sens 210.8 H* (0-14) pg/ml CBC 03/22/24 03/22/24 Range/Units 05:40 08:29 WBC Cancelled 5.45 RBC Cancelled 3.95 L Hgb Cancelled 9.8 L Hct Cancelled 33.5 L Plt Count Cancelled 197 Neut # (Auto) Cancelled 4.14 Lymph # (Auto) Cancelled 0.69 L Madison # (Auto) Cancelled 0.43 Eos # (Auto) Cancelled 0.14 Baso # (Auto) Cancelled 0.02 Comprehensive Metabolic Panel 03/22/24 Range/Units 05:40 Sodium 144 (136-145) mmol/L Potassium 3.7 (3.5-5.1) mmol/L Chloride 111 H (98-107) mmol/L Carbon Dioxide 27 (21-32) mmol/L BUN 31 H (6-23) mg/dl Creatinine 1.06 (0.6-1.2) mg/dl Glucose 88 (70-99(Fasting)) mg/dl Calcium 8.6 (8.6-10.3) mg/dl Intake and Output 03/21/24 03/22/24 03/22/24 22:59 06:59 14:59 Intake Total 120 / 385 110 / 110 Output Total 700 / 950 250 / 950 Balance -580 / -565 -250 / -565 110 / 110 Intake: IV 110 / 110 Iron Sucrose 200 mg In 0.9 % 110 / 110 Sodium Chloride 100 ml @ 220 mls/hr IV TODAY@0900 ONE Rx#: [id number] Oral 120 / 120 Output: Urine Amount (Catheter) 700 / 950 250 / 950 Campos/Indwelling 700 / 950 250 / 950 Other: Weight 67.1 kg Weight Measurement Method Built in [facility]
[2024-03-22 08:44] LABS: Basophils # (auto) 0.02 K/uL (0.00-0.20); Basophils % (auto) 0.4 %; Eosinophils # (auto) 0.14 K/uL (0.00-0.50); Eosinophils % (auto) 2.6 %; Hematocrit (blood only) 33.5 % (37.0-47.0); Hemoglobin 9.8 g/dl (12.0-16.0); Immature Granulocytes # (auto) 0.03 K/uL (0.01-0.20); Immature Granulocytes % (auto) 0.6 %; Lymphocytes # (auto) 0.69 K/uL (1.20-3.40); Lymphocytes % (auto) 12.7 %; Mean Corpuscular Hemoglobin 24.8 pg (25.0-34.0); Mean Corpuscular Hgb Conc 29.3 g/dL (32.0-36.0); Mean Corpuscular Volume 84.8 fL (80.0-100.0); Mean Platelet Volume 9.3 fL (9.4-12.4); Monocytes # (auto) 0.43 K/uL (0.11-0.59); Monocytes % (auto) 7.9 %; Neutrophils # (auto) 4.14 K/uL (1.40-6.50); Neutrophils % (auto) 75.8 %; Platelet Count 197 K/uL (130-400); RDW Coefficient of Variation 17.6 % (11.5-14.5); RDW Standard Deviation 53.6 fL (36.4-46.3); Red Blood Count 3.95 M/uL (4.20-5.40); White Blood Count 5.45 K/ul (4.8-10.8)
[2024-03-22] MEDS: METOPROLOL SUCC 25MG EXT REL TAB PO SCH (09:36)
[2024-03-22] MEDS: IRON SUCROSE 200 MG in 0.9 % SODIUM CHLORIDE 100 ML IV ONE (09:36)
--- NOTE | 2024-03-22 09:39 | CT Scan Report ---
CT OF THE HEAD WITHOUT CONTRAST CLINICAL HISTORY: Stroke like symptoms COMPARISON STUDY: Head CT and CTA of the head March 20, 2024. CT DOSE: 1342.31 mGy.cm TECHNIQUE: Helical axial images of the head were obtained without IV contrast. Automated exposure con trol was utilized for the study. A dose lowering technique was utilized adhering to the principles o f ALARA. FINDINGS: This study is mildly compromised by motion artifact. No acute intracranial hemorrhage, midl ine shift or mass effect is present. The ventricular system is unremarkable. The basal cisterns are p atent. White matter hypodensities favor small vessel disease. No extra-axial collections are present. There are no findings to suggest acute dural sinus thrombosis or acute territorial infarct. No signi ficant calvarial abnormalities are present. Visualized portions of the sinuses and mastoid air cells are clear. IMPRESSION: No acute intracranial findings. ACT 112: Negative or not required by law. Electronically signed by: Zeyad Eaton M.D. 03/22/2024 9:37 AM
--- NOTE | 2024-03-22 14:25 | Hospitalist Progress Note ---
Date of Service March 22, 2024 Assessment & Plan (1) Weakness: Plan: 88-year-old female with past medical history significant for hypertension, hyperlipidemia, hypothyroidism, history of bradycardia status post pacemaker last year at the [facility] and on 03/18/2024 she had had TAVR procedure for aortic valve at [facility] and was discharged on 03/19/2024 was brought in by and son because of weakness. As per son at the time of d ischarge patient was weak but was got discharged and son took her to his home. Before admitted to [facility] patient was ambulating okay sometimes used to use cane. But since she was discharged from [facility] patient is not at all ambulating. She is able to lift her left leg somewhat but right leg she is dragging. Her upper extremities also seemed very weak. This reason family brought her back to the hospital. Patient is currently sleeping. Very hard of hearing. Could tell her name. Knows that she is in the hospital. Can tell her date of . But could not tell current dates. She denies any chest pain or abdominal pain. Denies nausea or shortness of breath. Could not get much history from the patient as currently is sleepy. As per the family prior to surgery she was not eating much but after surgery she had two good meals. And she is swallowing okay. Before surgery she was getting short of breath but after surgery her shortness of breath seemed improved. family not sure that she had a CHF. But taking Bumex. Family denies any cardiac stents.Family says patient has on and off confusion going on for some time but not sure if she has dementia. Patient is afebrile. As per family no nausea or vomiting. Family does not know whether she has any diarrhea.. As per patient has urinary incontinence. Son is somewhat concerned that patient might had stroke. No runny nose or sore throat or cough. Vision is okay. Currently hemodynamics are okay. Family helped with H and P. Son lives in [place]. Patient and her live in [place]. Bilateral leg weakness Strokelike symptoms Likely due to comorbidities/deconditioning from recent TAVR Rule out stroke --CT Head:No evidence of acute intracranial pathology. --Repeat CT head:No acute intracranial findings. --Head CTA:Negative CT angiogram of the head. --Neck CTA:Negative CTA neck. --ECHO: Reviewed MRI brain pending Continue Neurochecks Appreciate neurology input PT OT as able May need rehab placement Normocytic anemia Iron deficiency anemia Unknown baseline hemoglobin Anemia workup reviewed Received IV Venofer Check fecal occult Hemoglobin stable Lower extremity edema ? Acute Vs chronic systolic CHF Vs Takotsubo cardiomyopathy --ECHO: EF 25 to 30%. Severe hypokinesis of the apex, distal to mid left ventricle segments. Basal segments are mildly hypokinetic. Right ventricle systolic function is mildly reduced. TAVR with normal function. Moderate mitral regurgitation. Mild mitral stenosis. Mild to moderate tricuspid r egurgitation. Right ventricular systolic pressure is elevated to be 30 to 40 mmHg. Unknown baseline Obtain old records continue Bumex Monitor volume status Appreciate cardiology input Elevated troponin EKG showed ventricular paced rhythm ECHO: EF 25 to 30%. Severe hypokinesis of the apex, distal to mid left ventricular segments, the basal segments are mildly hypokinetic. Right ventricle systolic function is mildly reduced. S/P TAVR with normal function. Aortic valve mean gradient of 7, V-max 2m/sec. moderate mitral regurgitation. Mild mitral stenosis. Mild to moderate tricuspid regurgitation. Right ventricle systolic pressure is elevated to be 30 to 40 mmHg. Obtain old records for echo comparison Continue home medications Appreciate cardiology input Amlodipine discontinued started on metoprolol succinate Started on metoprolol succinate 12.5 mg daily LY versus CKD Cr 1.3>1.2>1.06 Unknown baseline renal function Monitor renal function Avoid nephrotoxic agents as able Hypertension Continue losartan, metoprolol Amlodipine discontinued Monitor BP Hyperlipidemia On statin Hypothyroidism Normal TSH Continue levothyroxine DVT Px: SCDs Heparin SQ CODE STATUS Full code Admission and Anticipated Discharge Date Admission Date: March 21, 2024 Subjective Patient is seen and examined at bedside More alert, awake today States feeling well today, offers no complaints Discussed with patient's family at bedside Repeat CT head today showed no acute process Denies any chest pain, dyspnea, nausea, Abd pain, dizziness Review of Systems Review of Systems: All systems reviewed & are unremarkable except as noted in Subjective Physical Exam Physical Exam: Physical Exam: Vitals signs as noted above General Appearance:Moderately built and nourished, ill-appearing, no apparent distress, frail, elderly, Head: normocephalic, Atraumatic Eyes: normal inspection, EOMI Neck: supple, Trachea midline Respiratory/Chest: Decreased breath sounds, CTA, No accessory muscle use Cardiovascular: S1, S2, +murmur Abdomen/GI:Soft, Non tender, Bowel sounds present Extremities/Musculoskeletal:normal inspection, 1+edema Neurologic/Psych: Alert, awake, oriented, decreased hearing, grossly no focal deficits. Skin: normal color, warm Results & Data Results & Data Vital Signs (Past 12 Hours) Vital Signs Temp Pulse Resp BP Pulse Ox O2 Del Method O2 Flow Rate 03/22/24 10:34 36.8 C 75 18 113/61 93 Room Air 03/22/24 07:00 Nasal Cannula 2 03/22/24 07:00 36.6 C 64 16 128/81 94 Room Air 03/22/24 03:33 36.7 C 61 20 113/61 94 Room Air Laboratory Results Short CBC 03/22/24 03/22/24 Range/Units 05:40 08:29 WBC Cancelled 5.45 Hgb Cancelled 9.8 L Hct Cancelled 33.5 L Plt Count Cancelled 197 BMP 03/22/24 05:40 Sodium 144 Potassium 3.7 Chloride 111 H Carbon Dioxide 27 BUN 31 H Creatinine 1.06 Glucose 88 Calcium 8.6
[2024-03-23 06:21] LABS: Basophils # (auto) 0.01 K/uL (0.00-0.20); Basophils % (auto) 0.2 %; Eosinophils # (auto) 0.17 K/uL (0.00-0.50); Eosinophils % (auto) 3.3 %; Hematocrit (blood only) 29.5 % (37.0-47.0); Hemoglobin 8.9 g/dl (12.0-16.0); Immature Granulocytes # (auto) 0.02 K/uL (0.01-0.20); Immature Granulocytes % (auto) 0.4 %; Lymphocytes # (auto) 0.79 K/uL (1.20-3.40); Lymphocytes % (auto) 15.3 %; Mean Corpuscular Hgb Conc 30.2 g/dL (32.0-36.0); Mean Corpuscular Volume 82.9 fL (80.0-100.0); Mean Platelet Volume 9.4 fL (9.4-12.4); Monocytes % (auto) 9.7 %; Neutrophils # (auto) 3.66 K/uL (1.40-6.50); Neutrophils % (auto) 71.1 %; Platelet Count 227 K/uL (130-400); RDW Coefficient of Variation 17.5 % (11.5-14.5); RDW Standard Deviation 52.8 fL (36.4-46.3); Red Blood Count 3.56 M/uL (4.20-5.40); White Blood Count 5.15 K/ul (4.8-10.8)
[2024-03-23 06:28] LABS: BUN Creatinine Ratio 25.3 (10-20); Calcium 8.6 mg/dl (8.6-10.3); Creatinine Clr Calc Pharmacy 37.7 ml/min; Est GFR (African American) 64.8 ml/min; Est GFR (Non-African American) 55.9 ml/min
[2024-03-23] MEDS: FERROUS SULFATE 325 MG TAB PO SCH (08:50)
--- NOTE | 2024-03-23 12:16 | Cardiology Progress Note ---
Date of Service March 23, 2024 Assessment & Plan (1) Weakness: (2) Elevated troponin: (3) S/P TAVR (transcatheter aortic valve replacement): Plan Acute decompensated systolic heart failure with associated bilateral pleural effusions Symptomatic bradycardia status post January 10, 2024 Andre dual-chamber pacemaker implantation at [facility] Andre pulse generator [id number], serial #[id number]. RA lead 2087 TC/46, serial number [id number] RV lead 2087 TC/52, serial number [id number] Severe aortic valve stenosis status post March 19, 2024 TAVR (details unknown) with an [place] DELTA valve by Dr. López at [facility] Additional problems include hypertension, dyslipidemia, hypothyroidism, iron deficiency anemia, chronic kidney disease. Recommendations: Hold oral Bumex Initiate IV furosemide, 40 mg twice per day Increase supplemental potassium to 20 mEq twice per day Increase metoprolol succinate to 25 mg/day following diuresis ? Future use of spironolactone Interrogate Andre device Obtain records from [facility] Amlodipine discontinued this admission I spent a total of 76 minutes on the date of service in preparation, delivery, and documentation of the care provided to this patient excluding any time spent in the performance of separately billed services. Admission and Anticipated Discharge Date Admission Date: March 21, 2024 Supervising Physician Co-Signing Physician Notes I have personally performed a history and physical examination on the patient. I have reviewed the advance practitioner's documentation, and I agree with, and take responsibility for the plan of care. 88-year-old female with history of permanent pacemaker implantation status post recent TAVR at [facility] 03/19/2024 presents with weakness, and acute on chronic heart failure with reduced ejection fraction. Agree with initiation of IV diuresis, furosemide 40 mg twice daily. Monitor fluid balance, daily, GFR, electrolytes. Titrate metoprolol as noted above. Consider addition of spironolactone during hospitalization. I spent a total of 35 minutes on the date of service in preparation, delivery, and documentation of the care provided to this patient, excluding any time spent in the performance of separately billed services. Ernie Alvarado DO, [facility] Subjective Patient seen and examined. Chart, medications, telemetry reviewed. Still no records available from [facility] or 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 No chest pain. No palpitations. Review of Systems Review of Systems: Unable to be obtained Physical Exam Physical Exam: General: A&Ox3. NAD. HENT: Normocephalic. Atraumatic. Eyes: PER. Conjunctiva pink, sclera clear. Neck: JVD. Heart: Regular, paced. No murmur. Lungs: Absent breath sounds 1/2 up bilaterally. Abdomen: +BS. Soft. Nontender. No masses or organomegaly. Extremities: Mild distal right greater than left lower extremity edema. Cool, without cyanosis. Limited neurological examination is without focal deficits. Pulses: Posterior tibial=1/4. Results & Data Vital Signs (Past 12 Hours) Vital Signs Temp Pulse Resp BP Pulse Ox O2 Del Method 03/23/24 11:51 36.5 C 73 18 127/76 95 Room Air 03/23/24 07:18 36.9 C 73 16 118/61 93 Room Air 03/23/24 07:00 Room Air 03/23/24 03:51 36.3 C L 73 18 130/74 95 Room Air Laboratory Results CBC 03/23/24 Range/Units 05:38 WBC 5.15 (4.8-10.8) K/ul RBC 3.56 L (4.20-5.40) M/uL Hgb 8.9 L (12.0-16.0) g/dl Hct 29.5 L (37.0-47.0) % Plt Count 227 (130-400) K/uL Neut # (Auto) 3.66 (1.40-6.50) K/uL Lymph # (Auto) 0.79 L (1.20-3.40) K/uL Dougherty # (Auto) 0.50 (0.11-0.59) K/uL Eos # (Auto) 0.17 (0.00-0.50) K/uL Baso # (Auto) 0.01 (0.00-0.20) K/uL Comprehensive Metabolic Panel 03/23/24 Range/Units 05:38 Sodium 143 (136-145) mmol/L Potassium 4.0 (3.5-5.1) mmol/L Chloride 109 H (98-107) mmol/L Carbon Dioxide 30 (21-32) mmol/L BUN 23 (6-23) mg/dl Creatinine 0.91 (0.6-1.2) mg/dl Glucose 104 H (70-99(Fasting)) mg/dl Calcium 8.6 (8.6-10.3) mg/dl Intake and Output 03/22/24 03/23/24 03/23/24 22:59 06:59 14:59 Intake Total 240 / 550 Output Total 400 / 600 200 / 600 Balance -400 / -50 40 / -50 Intake: Oral 240 / 440 Output: Urine Amount (Catheter) 400 / 600 200 / 600 Campos/Indwelling 400 / 600 200 / 600 Other: Weight 67.2 kg Weight Measurement Method Built in [facility] Diagnostic Findings March 21, 2024 TTE interpretation summary ([facility]): LVEF 25 to 30%. Severe hypokinesis of the apex, distal to mid LV segments. Basal segments are mildly hypokinetic. RV systolic function mildly reduced. Status post TAVR, with normal function. Aortic valve mean gradient of 7, V-max 2 m/s. Moderate mitral regurgitation. Mild mitral stenosis. Mild to moderate tricuspid regurgitation. RVSP 30 to 40 mmHg Telemetry: Atrial sensed, ventricular paced rhythm
[2024-03-23] MEDS: FUROSEMIDE 40 MG/4 ML VIAL IV SCH (14:10)
--- NOTE | 2024-03-23 17:55 | Hospitalist Progress Note ---
Date of Service March 23, 2024 Assessment & Plan (1) Weakness: Plan: 88-year-old female with past medical history significant for hypertension, hyperlipidemia, hypothyroidism, history of bradycardia status post pacemaker last year at the [facility] and on 03/18/2024 she had had TAVR procedure for aortic valve at [facility] and was discharged on 03/19/2024 was brought in by and son because of weakness. As per son at the time of d ischarge patient was weak but was got discharged and son took her to his home. Before admitted to [facility] patient was ambulating okay sometimes used to use cane. But since she was discharged from [facility] patient is not at all ambulating. She is able to lift her left leg somewhat but right leg she is dragging. Her upper extremities also seemed very weak. This reason family brought her back to the hospital. Patient is currently sleeping. Very hard of hearing. Could tell her name. Knows that she is in the hospital. Can tell her date of . But could not tell current dates. She denies any chest pain or abdominal pain. Denies nausea or shortness of breath. Could not get much history from the patient as currently is sleepy. As per the family prior to surgery she was not eating much but after surgery she had two good meals. And she is swallowing okay. Before surgery she was getting short of breath but after surgery her shortness of breath seemed improved. family not sure that she had a CHF. But taking Bumex. Family denies any cardiac stents.Family says patient has on and off confusion going on for some time but not sure if she has dementia. Patient is afebrile. As per family no nausea or vomiting. Family does not know whether she has any diarrhea.. As per patient has urinary incontinence. Son is somewhat concerned that patient might had stroke. No runny nose or sore throat or cough. Vision is okay. Currently hemodynamics are okay. Family helped with H and P. Son lives in [place]. Patient and her live in [place]. Bilateral leg weakness Strokelike symptoms Likely due to comorbidities/deconditioning from recent TAVR Rule out stroke --CT Head:No evidence of acute intracranial pathology. --Repeat CT head:No acute intracranial findings. --Head CTA:Negative CT angiogram of the head. --Neck CTA:Negative CTA neck. --ECHO: Reviewed MRI brain pending Continue Neurochecks Appreciate neurology input Continue PT OT Plan to discharge to rehab facility as able Normocytic anemia Iron deficiency anemia Unknown baseline hemoglobin Anemia workup reviewed FOBT negative Received IV Venofer Hemoglobin stable Continue iron supplements Acute decompensated systolic heart failure Suspected Takotsubo cardiomyopathy --ECHO: EF 25 to 30%. Severe hypokinesis of the apex, distal to mid left ventricle segments. Basal segments are mildly hypokinetic. Right ventricle systolic function is mildly reduced. TAVR with normal function. Moderate mitral regurgitation. Mild mitral stenosis. Mild to moderate tricuspid regurgitation. Right ventricular systolic pressure is elevated to be 30 to 40 mmHg. Unknown baseline Obtain old records Hold Bumex Monitor volume status Appreciate cardiology input Continue IV Lasix Monitor volume status, electrolytes, renal function Metoprolol dose increased to 25 mg daily Elevated troponin EKG showed ventricular paced rhythm ECHO: EF 25 to 30%. Severe hypokinesis of the apex, distal to mid left ventricular segments, the basal segments are mildly hypokinetic. Right ventricle systolic function is mildly reduced. S/P TAVR with normal function. Aortic valve mean gradient of 7, V-max 2m/sec. moderate mitral regurgitation. Mild mitral stenosis. Mild to moderate tricuspid regurgitation. Right ventricle systolic pressure is elevated to be 30 to 40 mmHg. Obtain old records for echo comparison Continue home medications Appreciate cardiology input Amlodipine discontinued started on metoprolol succinate Continue metoprolol succinate 25 mg daily LY versus CKD Cr 1.3>1.2>1.06>0.91 Unknown baseline renal function Monitor renal function Avoid nephrotoxic agents as able Hypertension Continue losartan, metoprolol Amlodipine discontinued Monitor BP Hyperlipidemia On statin Hypothyroidism Normal TSH Continue levothyroxine DVT Px: SCDs Heparin SQ CODE STATUS Full code Disposition Acute rehab as able Admission and Anticipated Discharge Date Admission Date: March 21, 2024 Subjective Patient is seen and examined at bedside Sitting in chair during my encounter States having dyspnea, leg edema and some dizziness Also reports generalized weakness Family at bedside No other complaints Review of Systems Review of Systems: All systems reviewed & are unremarkable except as noted in Subjective Physical Exam Physical Exam: Physical Exam: Vitals signs as noted above General Appearance:Moderately built and nourished, ill-appearing, no apparent distress, frail, elderly, Head: normocephalic, Atraumatic Eyes: normal inspection, EOMI Neck: supple, Trachea midline Respiratory/Chest: Decreased breath sounds, CTA, No accessory muscle use Cardiovascular: S1, S2, +murmur Abdomen/GI:Soft, Non tender, Bowel sounds present Extremities/Musculoskeletal:normal inspection, 1+edema Neurologic/Psych: Alert, awake, oriented, decreased hearing, grossly no focal deficits. Skin: normal color, warm Results & Data Results & Data Vital Signs (Past 12 Hours) Vital Signs Temp Pulse Resp BP Pulse Ox O2 Del Method 03/23/24 15:00 36.8 C 68 18 117/68 92 Room Air 03/23/24 11:51 36.5 C 73 18 127/76 95 Room Air 03/23/24 07:18 36.9 C 73 16 118/61 93 Room Air 03/23/24 07:00 Room Air Laboratory Results Short CBC 03/23/24 Range/Units 05:38 WBC 5.15 (4.8-10.8) K/ul Hgb 8.9 L (12.0-16.0) g/dl Hct 29.5 L (37.0-47.0) % Plt Count 227 (130-400) K/uL BMP 03/23/24 05:38 Sodium 143 Potassium 4.0 Chloride 109 H Carbon Dioxide 30 BUN 23 Creatinine 0.91 Glucose 104 H Calcium 8.6
[2024-03-23] MEDS: POTASSIUM CHLORIDE CRTAB 20 MEQ TABCR PO SCH (20:13)
[2024-03-24 06:35] LABS: Hemoglobin 9.8 g/dl (12.0-16.0)
[2024-03-24 06:46] LABS: Calcium 8.9 mg/dl (8.6-10.3); Creatinine Clr Calc Pharmacy 37.7 ml/min; Est GFR (African American) 64.8 ml/min; Est GFR (Non-African American) 55.9 ml/min; Potassium 4.1 mmol/L (3.5-5.1)
--- NOTE | 2024-03-24 10:06 | Cardiology Progress Note ---
Date of Service March 24, 2024 Assessment & Plan (1) Weakness: (2) Elevated troponin: (3) S/P TAVR (transcatheter aortic valve replacement): Plan Acute decompensated systolic heart failure with associated bilateral pleural effusions Symptomatic bradycardia status post January 10, 2024 Andre dual-chamber pacemaker implantation at [facility] Severe aortic valve stenosis status post March 19, 2024 TAVR (details unknown) with an Alston DELTA valve by Dr. López at [facility] Paroxysmal atrial fibrillation via device interrogation Additional problems include hypertension, dyslipidemia, hypothyroidism, iron deficiency anemia, chronic kidney disease. Recommendations: Continue IV furosemide, increasing to 60 mg twice per day Increase potassium supplementation to 30 mEq twice per day PA and lateral chest x-ray in AM Continue metoprolol succinate 25 mg/day Anticoagulation risks appear greater than the benefit at this time. Amlodipine discontinued this admission Admission and Anticipated Discharge Date Admission Date: March 21, 2024 Supervising Physician Co-Signing Physician Notes I have personally performed a history and physical examination on the patient. I have reviewed the advance practitioner's documentation, and I agree with, and take responsibility for the plan of care. 88-year-old female with history of permanent pacemaker implantation status post recent TAVR at [facility] 03/19/2024 presents with weakness, and acute on chronic heart failure with reduced ejection fraction. Continue IV diuresis, furosemide 60 mg twice daily. Monitor fluid balance, daily weight, GFR, electrolytes. Supplement potassium as indicated. Consider addition of spironolactone during hospitalization. I spent a total of 20 minutes on the date of service in preparation, delivery, and documentation of the care provided to this patient, excluding any time spent in the performance of separately billed services. Ernie Alvarado DO, [facility] Subjective Patient seen and examined. Chart, medications, telemetry reviewed. and son at bedside. Patient with suspected dementia, hospital delirum. Breathing seems to be a little better today as compared to yesterday though patient continues to experience significant short of breath and lightheadedness with minimal activity. No chest pain or palpitations. Telemetry atrial sensed ventricular paced rhythm, in the 80s Pacer interrogation. 4.8 to 5.8 years remaining longevity. Atrial paced 4.1%. Ventricular paced greater than 99%. AT/AF burden 4%. Episode of PAF noted on March 17, 2024 lasting 2 hours and 13 minutes in duration Review of Systems Review of Systems: Unable to be obtained Physical Exam Physical Exam: General: A&Ox3. NAD. HENT: Normocephalic. Atraumatic. Eyes: PER. Conjunctiva pink, sclera clear. Neck: JVD. Heart: Regular, paced. No murmur. Lungs: Absent breath sounds 1/2 up bilaterally. Abdomen: +BS. Soft. Nontender. No masses or organomegaly. Extremities: No peripheral edema. Limited neurological examination is without focal deficits. Pulses: Posterior tibial=1/4. Results & Data Vital Signs (Past 12 Hours) Vital Signs Temp Pulse Pulse Resp BP Pulse Ox O2 Del Method 03/24/24 08:44 36.7 C 90 19 135/75 91 Room Air 03/24/24 03:21 36.5 C 80 18 121/71 92 Room Air 03/23/24 23:36 36.9 C 83 18 122/69 93 Room Air 03/23/24 22:42 79 Laboratory Results CBC 03/24/24 Range/Units 05:34 Hgb 9.8 L (12.0-16.0) g/dl Hct 33.0 L (37.0-47.0) % Comprehensive Metabolic Panel 03/24/24 Range/Units 05:34 Sodium 144 (136-145) mmol/L Potassium 4.1 (3.5-5.1) mmol/L Chloride 106 (98-107) mmol/L Carbon Dioxide 30 (21-32) mmol/L BUN 20 (6-23) mg/dl Creatinine 0.91 (0.6-1.2) mg/dl Glucose 113 H (70-99(Fasting)) mg/dl Calcium 8.9 (8.6-10.3) mg/dl Intake and Output 03/23/24 03/24/24 03/24/24 22:59 06:59 14:59 Intake Total 580 / 680 100 / 680 Output Total 2049 235 Balance -1470 / -1670 -200 / -1670 Intake: Oral 580 / 680 100 / 680 Output: Urine Amount (Catheter) 2049 300 / 2350 Campos/Indwelling 2049 / 235 Other: Weight 63.9 kg Weight Measurement Method Built in [facility]
[2024-03-24] MEDS: METOPROLOL SUCC 25MG EXT REL TAB PO SCH (10:18)
--- NOTE | 2024-03-24 14:35 | Pharmacy Report ---
- Date of Service March 24, 2024 - Pharmacy CVA/TIA Medication Review Patient with unclear etiology of weakness at this time. May or may not have been a stroke. Medications to Prevent Stroke handout has therefore not been added to the patients discharge packet at this time, but may be considered if diagnosis is a stroke/TIA. Otherwise, clarified stroke medications per below: Antiplatelet(s) * Aspirin Cholesterol * High intensity statin deferred due to age >75 and also LDL of 25 - as discussed w Dr. Rose DVT Prophylaxis * SCD thigh Therapeutic Anticoagulation * Hx Afib/Aflutter noted, but anticoagulation is being deferred as risks outweigh benefit per cardiology note Type 2 Diabetes * Patient does not have T2DM
--- NOTE | 2024-03-24 14:53 | Hospitalist Progress Note ---
Date of Service March 24, 2024 Assessment & Plan (1) Weakness: Plan: 88-year-old female with past medical history significant for hypertension, hyperlipidemia, hypothyroidism, history of bradycardia status post pacemaker last year at the [facility] and on 03/18/2024 she had had TAVR procedure for aortic valve at [facility] and was discharged on 03/19/2024 was brought in by and son because of weakness. As per son at the time of d ischarge patient was weak but was got discharged and son took her to his home. Before admitted to [facility] patient was ambulating okay sometimes used to use cane. But since she was discharged from [facility] patient is not at all ambulating. She is able to lift her left leg somewhat but right leg she is dragging. Her upper extremities also seemed very weak. This reason family brought her back to the hospital. Patient is currently sleeping. Very hard of hearing. Could tell her name. Knows that she is in the hospital. Can tell her date of . But could not tell current dates. She denies any chest pain or abdominal pain. Denies nausea or shortness of breath. Could not get much history from the patient as currently is sleepy. As per the family prior to surgery she was not eating much but after surgery she had two good meals. And she is swallowing okay. Before surgery she was getting short of breath but after surgery her shortness of breath seemed improved. family not sure that she had a CHF. But taking Bumex. Family denies any cardiac stents.Family says patient has on and off confusion going on for some time but not sure if she has dementia. Patient is afebrile. As per family no nausea or vomiting. Family does not know whether she has any diarrhea.. As per patient has urinary incontinence. Son is somewhat concerned that patient might had stroke. No runny nose or sore throat or cough. Vision is okay. Currently hemodynamics are okay. Family helped with H and P. Son lives in [place]. Patient and her live in [place]. Bilateral leg weakness Strokelike symptoms Likely due to comorbidities/deconditioning from recent TAVR Rule out stroke --CT Head:No evidence of acute intracranial pathology. --Repeat CT head:No acute intracranial findings. --Head CTA:Negative CT angiogram of the head. --Neck CTA:Negative CTA neck. --ECHO: Reviewed MRI brain pending Continue Neurochecks LDL 25 Appreciate neurology input Continue PT OT Continue aspirin, Lipitor (low-dose given advanced age, low LDL) Will likely need rehab when medically stable Normocytic anemia Iron deficiency anemia Unknown baseline hemoglobin Anemia workup reviewed FOBT negative Received IV Venofer Hemoglobin stable Continue iron supplements Hemoglobin 9.8 today Acute decompensated systolic heart failure Suspected Takotsubo cardiomyopathy --ECHO: EF 25 to 30%. Severe hypokinesis of the apex, distal to mid left ventricle segments. Basal segments are mildly hypokinetic. Right ventricle systolic function is mildly reduced. TAVR with normal function. Moderate mitral regurgitation. Mild mitral stenosis. Mild to moderate tricuspid regurgitation. Right ventricular systolic pressure is elevated to be 30 to 40 mmHg. Unknown baseline Obtain old records Hold Bumex Monitor volume status Appreciate cardiology input Continue IV Lasix--increase to 60 mg twice a day Monitor volume status, electrolytes, renal function Metoprolol dose increased to 25 mg daily Needs follow-up with cardiology on discharge Chest x-ray tomorrow to reassess volume status Elevated troponin EKG showed ventricular paced rhythm ECHO: EF 25 to 30%. Severe hypokinesis of the apex, distal to mid left ventricular segments, the basal segments are mildly hypokinetic. Right ventricle systolic function is mildly reduced. S/P TAVR with normal function. Aortic valve mean gradient of 7, V-max 2m/sec. moderate mitral regurgitation. Mild mitral stenosis. Mild to moderate tricuspid regurgitation. Right ventricle systolic pressure is elevated to be 30 to 40 mmHg. Obtain old records for echo comparison Continue home medications Appreciate cardiology input Amlodipine discontinued started on metoprolol succinate Continue metoprolol succinate 25 mg daily LY versus CKD Cr 1.3>1.2>1.06>0.91 Unknown baseline renal function Monitor renal function Avoid nephrotoxic agents as able Hypertension Blood pressure low Continue losartan, metoprolol Amlodipine discontinued Monitor BP Hyperlipidemia On statin Hypothyroidism Normal TSH Continue levothyroxine DVT Px: SCDs Heparin SQ CODE STATUS Full code Disposition Acute rehab as able Admission and Anticipated Discharge Date Admission Date: March 21, 2024 Subjective Patient is seen and examined at bedside Poor historian Shortness of breath slightly better when compared to yesterday Also reports dizziness with PT evaluation earlier today Family at bedside No other complaints today Discussed with cardiology today Review of Systems Review of Systems: All systems reviewed & are unremarkable except as noted in Subjective Physical Exam Physical Exam: Physical Exam: Vitals signs as noted above General Appearance:Moderately built and nourished, ill-appearing, no apparent distress, frail, elderly, Head: normocephalic, Atraumatic Eyes: normal inspection, EOMI Neck: supple, Trachea midline Respiratory/Chest: Decreased breath sounds, CTA, No accessory muscle use Cardiovascular: S1, S2, +murmur Abdomen/GI:Soft, Non tender, Bowel sounds present Extremities/Musculoskeletal:normal inspection, 1+edema Neurologic/Psych: Alert, awake, oriented, decreased hearing, grossly no focal deficits. Skin: normal color, warm Results & Data Results & Data Vital Signs (Past 12 Hours) Vital Signs Temp Pulse Resp BP BP Pulse Ox O2 Del Method 03/24/24 13:00 95 03/24/24 10:22 36.9 C 68 21 94/57 L 90 Nasal Cannula 03/24/24 10:10 36.6 C 84 19 119/83 94 Room Air 03/24/24 08:44 36.7 C 90 19 135/75 91 Room Air 03/24/24 03:21 36.5 C 80 18 121/71 92 Room Air O2 Flow Rate 03/24/24 13:00 03/24/24 10:22 4 03/24/24 10:10 03/24/24 08:44 03/24/24 03:21 Laboratory Results Short CBC 03/24/24 Range/Units 05:34 Hgb 9.8 L (12.0-16.0) g/dl Hct 33.0 L (37.0-47.0) % BMP 03/24/24 05:34 Sodium 144 Potassium 4.1 Chloride 106 Carbon Dioxide 30 BUN 20 Creatinine 0.91 Glucose 113 H Calcium 8.9
[2024-03-24] MEDS: FUROSEMIDE 40 MG/4 ML VIAL IV SCH (17:49)
[2024-03-24] MEDS: POTASSIUM CHLORIDE 10 MEQ TABCR PO SCH (20:35)
[2024-03-25 06:25] LABS: Hematocrit (blood only) 31.9 % (37.0-47.0); Hemoglobin 9.3 g/dl (12.0-16.0); Mean Corpuscular Hemoglobin 24.5 pg (25.0-34.0); Mean Corpuscular Hgb Conc 29.2 g/dL (32.0-36.0); Mean Corpuscular Volume 84.2 fL (80.0-100.0); Platelet Count 245 K/uL (130-400); RDW Coefficient of Variation 17.7 % (11.5-14.5); RDW Standard Deviation 53.5 fL (36.4-46.3); Red Blood Count 3.79 M/uL (4.20-5.40); White Blood Count 6.49 K/ul (4.8-10.8)
[2024-03-25 06:30] LABS: BUN Creatinine Ratio 18.3 (10-20); Calcium 8.8 mg/dl (8.6-10.3); Creatinine Clr Calc Pharmacy 32.2 ml/min; Est GFR (African American) 55.2 ml/min; Est GFR (Non-African American) 47.6 ml/min; Magnesium 1.6 mg/dl (1.7-2.4); Potassium 4.2 mmol/L (3.5-5.1)
--- NOTE | 2024-03-25 09:18 | XRay Report ---
XR chest 2V PA/lateral CLINICAL HISTORY: chf/pleural effusions TECHNIQUE: 2 views of the chest were obtained. Comparison: Comparison is made to chest radiograph 03/20/2024 FINDINGS: An implanted pacemaker is seen. Cardiomegaly is noted. The aortic arch is calcified. Prominence and c ephalization of the vasculature is seen. Small bilateral pleural effusions are similar to prior exam. IMPRESSION: 1. Small bilateral pleural effusions are similar to prior exam. 2. Cardiomegaly with mild pulmonary edema, improved from prior exam. ACT 112: Negative or not required by law. Electronically signed by: Dylon Malave M.D. 03/25/2024 9:16 AM
--- NOTE | 2024-03-25 11:37 | Cardiology Progress Note ---
Date of Service March 25, 2024 Assessment & Plan (1) Weakness: (2) Elevated troponin: (3) S/P TAVR (transcatheter aortic valve replacement): Plan Acute decompensated systolic congestive heart failure with associated right greater than left pleural effusions Symptomatic bradycardia status post January 10, 2024 Andre dual-chamber pacemaker implantation at [facility] Severe aortic valve stenosis status post March 19, 2024 TAVR (details unknown) with an Alston DELTA valve by Dr. López at [facility] Asymptomatic paroxysmal atrial fibrillation via device interrogation; risks of anticoagulation felt to be greater than the benefit at this point. Additional issues include hypertension, dyslipidemia, hypothyroidism, iron deficiency anemia, chronic kidney disease. Recommendations: Continue IV furosemide 60 mg twice per day Continue potassium supplementation 30 mEq twice per day for now Trial low dose spironolactone 12.5 mg/day Supplement magnesium, 2 grams IV today. Losartan placed on hold this AM due to borderline blood pressure Continue metoprolol succinate 25 mg/day, aspirin 81 mg/day, and atorvastatin 10 mg/day Anticoagulation risks appear greater than the benefit at this time. Amlodipine discontinued this admission Will probably need Bumex 2 mg by mouth along with 10 mEq's of potassium chloride and 12.5 mg of spironolactone on discharge Admission and Anticipated Discharge Date Admission Date: March 21, 2024 Supervising Physician Co-Signing Physician Notes I have personally performed a history and physical examination on the patient. I have reviewed the advance practitioner's documentation, and I agree with, and take responsibility for the plan of care. 88-year-old female with history of permanent pacemaker implantation status post recent TAVR at [facility] 03/19/2024 presents with weakness, and acute on chronic heart failure with reduced ejection fraction. Continue IV diuresis, furosemide 60 mg twice daily and aldactone. Monitor fluid balance, daily weight, GFR, electrolytes. Supplement potassium as indicated. Losartan on hold due to borderline hypotension. Amlodipine discontinued during admission. I spent a total of 20 minutes on the date of service in preparation, delivery, and documentation of the care provided to this patient, excluding any time spent in the performance of separately billed services. Ernie Alvarado DO, [facility] Subjective Patient seen and examined. Chart, medications, telemetry reviewed Tired after doing therapy. Dyspnea and orthopnea improved. No chest pain. No palpitations. I/O's: -565 mL, -50 mL, -1670 mL, -1331 mL (-3616 mL overall) Chest x-ray with mild pulmonary edema, moderate right, small left pleural effusions Review of Systems Review of Systems: See above Physical Exam Physical Exam: General: A&Ox3. NAD. HENT: Normocephalic. Atraumatic. Eyes: PER. Conjunctiva pink, sclera clear. Neck: JVD. Heart: Regular, paced. No murmur. Lungs: Absent breath sounds 1/2 up bilaterally. Abdomen: +BS. Soft. Nontender. No masses or organomegaly. Extremities: Minimal peripheral edema. Limited neurological examination is without focal deficits. Pulses: Posterior tibial=1/4. Results & Data Vital Signs (Past 12 Hours) Vital Signs Temp Pulse Resp BP Pulse Ox O2 Del Method 03/25/24 07:15 36.7 C 66 12 111/43 L 97 Room Air Laboratory Results CBC 03/25/24 Range/Units 05:56 WBC 6.49 (4.8-10.8) K/ul RBC 3.79 L (4.20-5.40) M/uL Hgb 9.3 L (12.0-16.0) g/dl Hct 31.9 L (37.0-47.0) % Plt Count 245 (130-400) K/uL Comprehensive Metabolic Panel 03/25/24 Range/Units 05:56 Sodium 141 (136-145) mmol/L Potassium 4.2 (3.5-5.1) mmol/L Chloride 103 (98-107) mmol/L Carbon Dioxide 34 H (21-32) mmol/L BUN 19 (6-23) mg/dl Creatinine 1.04 (0.6-1.2) mg/dl Glucose 107 H (70-99(Fasting)) mg/dl Calcium 8.8 (8.6-10.3) mg/dl Intake and Output 03/24/24 03/25/24 03/25/24 22:59 06:59 14:59 Intake Total 240 / 720 Output Total 1000 Balance -1001 / -1331 -110 / -1331 Intake: Oral 240 / 720 Output: Urine Amount (Catheter) 999 Campos/Indwelling 999 # Bowel Movements Other: Other Intake Source Sips
[2024-03-25] MEDS: MAGNESIUM SULFATE / D5W 1 GM/100 ML BAG IV SCH (11:55)
[2024-03-25] MEDS: GADOBUTROL 65ML VIAL IV ONE (12:53)
[2024-03-25] MEDS: SPIRONOLACTONE 12.5 MG TAB PO SCH (13:25)
--- NOTE | 2024-03-25 13:36 | Hospitalist Progress Note ---
Date of Service March 25, 2024 Assessment & Plan (1) Weakness: Plan: 88-year-old female with past medical history significant for hypertension, hyperlipidemia, hypothyroidism, history of bradycardia status post pacemaker last year at the [facility] and on 03/18/2024 she had had TAVR procedure for aortic valve at [facility] and was discharged on 03/19/2024 was brought in by and son because of generalized weakness Bilateral leg weakness Strokelike symptoms Likely due to comorbidities/deconditioning from recent TAVR Rule out stroke --CT Head:No evidence of acute intracranial pathology. --Repeat CT head:No acute intracranial findings. --Head CTA:Negative CT angiogram of the head. --Neck CTA:Negative CTA neck. MRI brain pending Continue Neurochecks Continue PT OT Continue aspirin, Lipitor (low-dose given advanced age, low LDL) Will likely need rehab when medically stable Acute decompensated systolic heart failure Suspected Takotsubo cardiomyopathy --ECHO: EF 25 to 30%. Severe hypokinesis of the apex, distal to mid left ventricle segments. Basal segments are mildly hypokinetic. Right ventricle systolic function is mildly reduced. TAVR with normal function. Moderate mitral regurgitation. Mild mitral stenosis. Mild to moderate tricuspid regurgitation. Right ventricular systolic pressure is elevated to be 30 to 40 mmHg. Unknown baseline Checks x-ray done on 03/24 shows improvement in pulm edema Continue IV Lasix--on 60 mg twice a day Monitor volume status, electrolytes, renal function Metoprolol dose increased to 25 mg daily Needs follow-up with cardiology on discharge Normocytic anemia Iron deficiency anemia Unknown baseline hemoglobin Anemia workup reviewed FOBT negative Received IV Venofer Hemoglobin stable Continue iron supplements Elevated troponin EKG showed ventricular paced rhythm ECHO: EF 25 to 30%. Severe hypokinesis of the apex, distal to mid left ventricular segments, the basal segments are mildly hypokinetic. Right ventricle systolic function is mildly reduced. S/P TAVR with normal function. Aortic valve mean gradient of 7, V-max 2m/sec. moderate mitral regurgitation. Mild mitral stenosis. Mild to moderate tricuspid regurgitation. Right ventricle systolic pressure is elevated to be 30 to 40 mmHg. Amlodipine discontinued started on metoprolol succinate Continue metoprolol succinate 25 mg daily LY versus CKD Cr 1.3>1.2>1.06>0.91 Unknown baseline renal function Monitor renal function Avoid nephrotoxic agents as able Hypertension Blood pressure low Continue metoprolol Amlodipine and losartan discontinued Monitor BP Hyperlipidemia On statin Hypothyroidism Normal TSH Continue levothyroxine DVT Px: Heparin SQ CODE STATUS Full code Disposition Patient continues to be hospitalized for acute decompensated heart failure requiring IV diuretics. MRI brain pending to rule out Stroke Updated son over the phone. Answer questions/queries Time spent evaluating patient, direct bedside care, chart review, placing orders, interpretation of diagnostic studies, discussion with consultants, patient, and family members, as well as other required patient management activities is 50 minutes Please note the above document was generated using voice recognition software. It may contain grammatical, syntax or spelling errors. Any formal questions or concerns about the content, text or information contained within the body of this dictation should be directly addressed to the provider for clarification Admission and Anticipated Discharge Date Admission Date: March 21, 2024 Subjective Patient seen and examined at bedside. She reported she worked with PT OT and feels tired at this time Reports that her shortness of breath has improved No significant events overnight Review of Systems Review of Systems: All systems reviewed & are unremarkable except as noted in Subjective Physical Exam Physical Exam: Physical Exam: Vitals signs as noted above General Appearance:Alert oriented to self and place. Not in distress Head: normocephalic, Atraumatic Eyes: normal inspection, EOMI Neck: supple, Trachea midline Respiratory/Chest: Decreased breath sounds at bases, CTA, No accessory muscle use Cardiovascular: S1, S2, +murmur Abdomen/GI:Soft, Non tender, Bowel sounds present Extremities/Musculoskeletal:normal inspection, 1+ pitting edema Neurologic/Psych: Alert, awake, oriented, decreased hearing, grossly no focal deficits. Skin: normal color, warm Results & Data Results & Data Vital Signs (Past 12 Hours) Vital Signs Temp Pulse Resp BP Pulse Ox O2 Del Method 03/25/24 11:33 36.7 C 65 14 104/49 L 95 Room Air 03/25/24 07:15 36.7 C 66 12 111/43 L 97 Room Air
--- NOTE | 2024-03-25 14:20 | Magnetic Resonance Report ---
MR brain wo/w con CLINICAL HISTORY: stroke like symptoms TECHNIQUE: Multiplanar and multisequence MR images of the brain were obtained prior to and following administration of gadolinium contrast. Comparison: Comparison is made to CTA head and neck 03/22/2024 FINDINGS: Scattered small foci of restricted diffusion are seen bilateral posterior frontal lobes. Foci of T2 a nd FLAIR hyperintensity are noted in the paraventricular areas consistent with chronic small vessel i schemic disease. Ex vacuo ventriculomegaly and sulcal enlargement is noted compatible with diffuse vo lume loss. No mass or abnormal enhancement is seen. There is no mass effect or midline shift. There i s no evidence of acute intraparenchymal hemorrhage. No extra axial fluid collections are seen. The co rpus callosum, pituitary gland, and cerebellar tonsils appear grossly unremarkable. Flow voids of the major intracranial arterial vessels are identified. The imaged portions of the para nasal sinuses, mastoid air cells, and orbits are unremarkable. IMPRESSION: Scattered small foci of restricted diffusion are seen in the bilateral frontal lobes compatible with small embolic infarcts. ACT 112: Negative or not required by law. Electronically signed by: Dylon Malave M.D. 03/25/2024 2:19 PM
[2024-03-26 06:03] LABS: Basophils # (auto) 0.03 K/uL (0.00-0.20); Basophils % (auto) 0.5 %; Eosinophils # (auto) 0.25 K/uL (0.00-0.50); Eosinophils % (auto) 3.9 %; Hemoglobin 9.8 g/dl (12.0-16.0); Immature Granulocytes # (auto) 0.02 K/uL (0.01-0.20); Immature Granulocytes % (auto) 0.3 %; Lymphocytes # (auto) 1.14 K/uL (1.20-3.40); Lymphocytes % (auto) 17.9 %; Mean Corpuscular Hemoglobin 25.4 pg (25.0-34.0); Mean Corpuscular Hgb Conc 30.6 g/dL (32.0-36.0); Mean Corpuscular Volume 82.9 fL (80.0-100.0); Mean Platelet Volume 8.8 fL (9.4-12.4); Monocytes # (auto) 0.54 K/uL (0.11-0.59); Monocytes % (auto) 8.5 %; Neutrophils # (auto) 4.38 K/uL (1.40-6.50); Neutrophils % (auto) 68.9 %; Platelet Count 252 K/uL (130-400); RDW Coefficient of Variation 17.9 % (11.5-14.5); RDW Standard Deviation 53.8 fL (36.4-46.3); Red Blood Count 3.86 M/uL (4.20-5.40); White Blood Count 6.36 K/ul (4.8-10.8)
[2024-03-26 09:34] LABS: Calcium 9.2 mg/dl (8.6-10.3); Potassium 4.6 mmol/L (3.5-5.1)
[2024-03-26 09:40] LABS: BUN Creatinine Ratio 21.6 (10-20); Creatinine Clr Calc Pharmacy 29.5 ml/min
--- NOTE | 2024-03-26 11:14 | Hospitalist Progress Note ---
Date of Service March 26, 2024 Assessment & Plan (1) Weakness: Plan: 88-year-old female with past medical history significant for hypertension, hyperlipidemia, hypothyroidism, history of bradycardia status post pacemaker last year at the [facility] and on 03/18/2024 she had had TAVR procedure for aortic valve at [place] and was discharged on 03/19/2024 was brought in by and son because of generalized weakness Cardioembolic stroke --CT Head:No evidence of acute intracranial pathology. --Repeat CT head:No acute intracranial findings. --Head CTA:Negative CT angiogram of the head. --Neck CTA:Negative CTA neck. MRI brain showed scattered small foci of restriction diffusion in bilateral frontal lobe compatible with small embolic infarcts. Discussed finding of the MRI with patient's son, and patient at bedside on 03/26. . Patient could have had embolic stroke from recent TAVR procedure or from brief episodes of atrial fibrillation. We discussed about benefit and risks of anticoagulation. At this time, patient is anemic, very weak and severely deconditioned which puts her at a high risk of fall that could result in life-threatening bleeding. Her son and both agree that patient needs to get physically stronger with rehabilitation which would hopefully make her fall risks low and then consider for anticoagulation in the near future. The verbalized and understand that patient has risks of stroke presently secondary to atrial fibrillation but feel the risks of life threatening bleed is higher than stroke. Discussed with cardiology who agrees with the plan as well. Continue aspirin, Lipitor (low-dose given advanced age, low LDL) Will likely need rehab when medically stable Acute decompensated systolic heart failure Suspected Takotsubo cardiomyopathy --ECHO: EF 25 to 30%. Severe hypokinesis of the apex, distal to mid left ventricle segments. Basal segments are mildly hypokinetic. Right ventricle systolic function is mildly reduced. TAVR with normal function. Moderate mitral regurgitation. Mild mitral stenosis. Mild to moderate tricuspid regurgitation. Right ventricular systolic pressure is elevated to be 30 to 40 mmHg. Unknown baseline Checks x-ray done on 03/24 shows improvement in pulm edema Continue IV Lasix--on 60 mg twice a day Monitor volume status, electrolytes, renal function Metoprolol dose increased to 25 mg daily Needs follow-up with cardiology on discharge Normocytic anemia Iron deficiency anemia Unknown baseline hemoglobin Anemia workup reviewed FOBT negative Received IV Venofer Hemoglobin stable Continue iron supplements Elevated troponin EKG showed ventricular paced rhythm ECHO: EF 25 to 30%. Severe hypokinesis of the apex, distal to mid left yola tricular segments, the basal segments are mildly hypokinetic. Right ventricle systolic function is mildly reduced. S/P TAVR with normal function. Aortic valve mean gradient of 7, V-max 2m/sec. moderate mitral regurgitation. Mild mitral stenosis. Mild to moderate tricuspid regurgitation. Right ventricle systolic pressure is elevated to be 30 to 40 mmHg. Amlodipine discontinued started on metoprolol succinate Continue metoprolol succinate 25 mg daily LY versus CKD Unknown baseline renal function Monitor renal function Avoid nephrotoxic agents as able Hypertension Blood pressure low Continue metoprolol Amlodipine and losartan discontinued Monitor BP Hyperlipidemia On statin, continue Hypothyroidism Normal TSH Continue levothyroxine DVT Px: Heparin SQ CODE STATUS Full code Disposition Discharge to rehab when bed is available Time spent evaluating patient, direct bedside care, chart review, placing orders, interpretation of diagnostic studies, discussion with consultants, patient, and family members, as well as other required patient management activities is 50 minutes Please note the above document was generated using voice recognition software. It may contain grammatical, syntax or spelling errors. Any formal questions or concerns about the content, text or information contained within the body of this dictation should be directly addressed to the provider for clarification Admission and Anticipated Discharge Date Admission Date: March 21, 2024 Subjective Patient seen and examined at bedside. She is sitting up on the chair; appears comfortable. She is not requiring oxygen She reports that she is feeling much better Review of Systems Review of Systems: All systems reviewed & are unremarkable except as noted in Subjective Physical Exam Physical Exam: Physical Exam: Vitals signs as noted above General Appearance:Alert oriented to self and place. Not in distress Head: normocephalic, Atraumatic Eyes: normal inspection, EOMI Neck: supple, Trachea midline Respiratory/Chest: Decreased breath sounds at bases, CTA, No accessory muscle use Cardiovascular: S1, S2, +murmur Abdomen/GI:Soft, Non tender, Bowel sounds present Extremities/Musculoskeletal:normal inspection, no pitting edema Neurologic/Psych: Alert, awake, oriented, decreased hearing, grossly no focal deficits. Skin: normal color, warm Results & Data Results & Data Vital Signs (Past 12 Hours) Vital Signs Temp Pulse Resp BP Pulse Ox O2 Del Method 03/26/24 09:01 36.5 C 68 18 119/63 92 Room Air 03/26/24 02:51 36.6 C 72 19 126/61 92 Room Air
--- NOTE | 2024-03-26 11:24 | Cardiology Progress Note ---
Date of Service March 26, 2024 Assessment & Plan (1) Weakness: (2) Elevated troponin: (3) S/P TAVR (transcatheter aortic valve replacement): Plan Acute decompensated systolic congestive heart failure with associated right greater than left pleural effusions Symptomatic bradycardia status post January 10, 2024 Andre dual-chamber pacemaker implantation at [facility] Severe aortic valve stenosis status post March 19, 2024 TAVR (details unknown) with an [place] DELTA valve by Dr. López at [facility] Asymptomatic paroxysmal atrial fibrillation via device interrogation; risks of anticoagulation felt to be greater than the benefit at this point. Brain MRI on 03/25/2024 compatible with small embolic infarcts. Additional issues include hypertension, dyslipidemia, hypothyroidism, iron deficiency anemia, chronic kidney disease. Recommendations: Continue IV furosemide 60 mg twice per day through today then transition to oral Bumex in AM of 03/27 as ordered Decrease potassium chloride to 10 mEq/day Continue low dose spironolactone 12.5 mg/day Continue metoprolol succinate 25 mg/day Continue aspirin 81 mg/day Continue atorvastatin 10 mg/day Hold losartan though look to resume in the future. Anticoagulation risks appear greater than the benefit Will need to have afib alerts set on the Andre pacemaker Reconsider anticoagulation (reduced dose Eliquis) and Watchman referral periodically as an outpatient Amlodipine discontinued this admission Increase activity as tolerated. Outpatient Cardiology with [facility] in [place] after rehab stay Admission and Anticipated Discharge Date Admission Date: March 21, 2024 Supervising Physician Co-Signing Physician Notes I have personally performed a history and physical examination on the patient. I have reviewed the advance practitioner's documentation, and I agree with, and take responsibility for the plan of care. 88-year-old female with history of permanent pacemaker implantation status post recent TAVR at [facility] 03/19/2024 presents with weakness, and acute on chronic heart failure with reduced ejection fraction. Continue IV diuresis, furosemide 60 mg twice daily and aldactone. Transition to oral Bumex in a.m. 03/27/2024. Hold losartan due to borderline resting hypotension. Amlodipine discontinued. Monitor fluid balance, daily weight, GFR, electrolytes. I spent a total of 20 minutes on the date of service in preparation, delivery, and documentation of the care provided to this patient, excluding any time spent in the performance of separately billed services. Ernie Alvarado DO [facility] Subjective Patient seen and examined. Chart, medications, telemetry reviewed. and son at bedside. Feeling better. No chest pain. No palpitations. Dyspnea improved. I's/O's -5321 mL overall Telemetry: Atrial sensed, ventricular paced, heart rates 60's to 80's. Review of Systems Review of Systems: See above Physical Exam Physical Exam: General: A&Ox3. NAD. HENT: Normocephalic. Atraumatic. Eyes: PER. Conjunctiva pink, sclera clear. Neck: JVD. Heart: Regular, paced. No murmur. Lungs: Absent breath sounds 1/3 up bilaterally. Abdomen: +BS. Soft. Nontender. No masses or organomegaly. Extremities: Minimal peripheral edema. Limited neurological examination is without focal deficits. Pulses: Posterior tibial=1/4. Results & Data Vital Signs (Past 12 Hours) Vital Signs Temp Pulse Resp BP Pulse Ox O2 Del Method 03/26/24 11:14 36.8 C 65 20 104/66 97 Room Air 03/26/24 09:01 36.5 C 68 18 119/63 92 Room Air 03/26/24 02:51 36.6 C 72 19 126/61 92 Room Air Laboratory Results CBC 03/26/24 Range/Units 05:43 WBC 6.36 (4.8-10.8) K/ul RBC 3.86 L (4.20-5.40) M/uL Hgb 9.8 L (12.0-16.0) g/dl Hct 32.0 L (37.0-47.0) % Plt Count 252 (130-400) K/uL Neut # (Auto) 4.38 (1.40-6.50) K/uL Lymph # (Auto) 1.14 L (1.20-3.40) K/uL Love # (Auto) 0.54 (0.11-0.59) K/uL Eos # (Auto) 0.25 (0.00-0.50) K/uL Baso # (Auto) 0.03 (0.00-0.20) K/uL Comprehensive Metabolic Panel 03/26/24 Range/Units 05:43 Sodium 142 (136-145) mmol/L Potassium 4.6 (3.5-5.1) mmol/L Chloride 105 (98-107) mmol/L Carbon Dioxide 27 (21-32) mmol/L BUN 24 H (6-23) mg/dl Creatinine 1.11 (0.6-1.2) mg/dl Glucose 91 (70-99(Fasting)) mg/dl Calcium 9.2 (8.6-10.3) mg/dl Intake and Output 03/25/24 03/26/24 03/26/24 22:59 06:59 14:59 Intake Total 620 / 820 100 / 820 Output Total 187 / 2524 650 / 2525 Balance -1255 / -1705 -550 / -1705 Intake: IV 100 / 200 Magnesium Sulfate / D5w 1 gm In 100 / 200 100 ml @ 50 mls/hr IV Q2H [facility] Rx#:[id number] Oral 520 / 620 100 / 620 Output: Urine Amount (Catheter) 1874 650 / 2525 Campos/Indwelling 1874 650 / 2525 Other: Weight 60.6 kg Weight Measurement Method Built in [facility]
[2024-03-27 07:16] LABS: Calcium 8.8 mg/dl (8.6-10.3); Creatinine Clr Calc Pharmacy 30.3 ml/min; Est GFR (African American) 52.1 ml/min
[2024-03-27] MEDS: BUMETANIDE 1 MG TAB PO SCH (07:48)
[2024-03-27] MEDS: POTASSIUM CHLORIDE 10 MEQ TABCR PO SCH (07:52)
--- NOTE | 2024-03-27 09:18 | Discharge Summary ---
Date of Service March 27, 2024 Admission HPI Per Admitting Provider 88-year-old female with past medical history significant for hypertension, hyperlipidemia, hypothyroidism, history of bradycardia status post pacemaker last year at the [facility] and on 03/18/2024 she had had TAVR procedure for aortic valve at [place] and was discharged on 03/19/2024 was brought in by and son because of weakness. As per son at the time of discharge patient was weak but was got discharged and son took her to his home. Before admitted to [facility] patient was ambulating okay sometimes used to use cane. But since she was discharged from [facility] patient is not at all ambulating. She is able to lift her left leg somewhat but right leg she is dragging. Her upper extremities also seemed very weak. This reason family brought her back to the hospital. Patient is currently sleeping. Very hard of hearing. Could tell her name. Knows that she is in the hospital. Can tell her date of . But could not tell current dates. She denies any chest pain or abdominal pain. Denies nausea or shortness of breath. Could not get much history from the patient as currently is sleepy. As per the family prior to surgery she was not eating much but after surgery she had two good meals. And she is swallowing okay. Before surgery she was getting short of breath but after surgery her shortness of breath seemed improved. family not sure that she had a CHF. But taking Bumex. Family denies any cardiac stents.Family says patient has on and off confusion going on for some time but not sure if she has dementia. Patient is afebrile. As per family no nausea or vomiting. Family does not know whether she has any diarrhea.. As per patient has urinary incontinence. Son is somewhat concerned that patient might had stroke. No runny nose or sore throat or cough. Vision is okay. Currently hemodynamics are okay. Family helped with H and P. Son lives in [place]. Patient and her live in [place]. Past medical history. As mentioned above Past surgical history. Status post pacemaker. Status post bioprosthetic aortic valve replacement. Status post bladder tack surgery. Social history. No smoking. Alcohol rarely. Family history. Mother had liver cancer. Admission Exam Per Admitting Provider General- Not in acute distress. Sleepy Head- atraumatic Neck- no JVD Lungs- clear to auscultation no wheezing or crackles Heart- regular rate and rhythm; no murmur, no gallop Abdomen- normal bowel sounds, soft, mild discomfort, no distension Extremities- mild pretibial edema present , no erythema seen Neuro- alert, oriented x 2; ; no facial palsy; no dysarthria; could not do full exam as patient is very drowsy currently Principal Diagnosis Cardioembolic stroke Acute decompensated systolic heart failure Suspected Takotsubo cardiomyopathy Discharge Exam Physical Exam: Vitals signs as noted above General Appearance:Alert oriented to self and place. Not in distress Head: normocephalic, Atraumatic Eyes: normal inspection, EOMI Neck: supple, Trachea midline Respiratory/Chest: Decreased breath sounds at bases, CTA, No accessory muscle use Cardiovascular: S1, S2, +murmur Abdomen/GI:Soft, Non tender, Bowel sounds present Extremities/Musculoskeletal:normal inspection, no pitting edema Neurologic/Psych: Alert, awake, oriented, decreased hearing, grossly no focal deficits. Skin: normal color, warm Discharge Data Allergies Allergy/AdvReac Type Severity Reaction Status Date / Time No Known Allergies Allergy Unverified 03/21/24 02:52 Consultations 03/20/24 23:27 ED Decision to Admit Stat 03/21/24 08:00 Consult Cardiology Routine Consult Neurology Routine 03/24/24 08:26 HIM [Consult Health Information Management] Routine Ordered Studies 03/20/24 19:01 CT head/brain wo con Stat 03/20/24 21:16 CT angio head w con Stat CT angio neck with con Stat 03/22/24 08:23 CT head/brain wo con Urgent 03/25/24 00:00 MR brain wo/w con Routine Hospital Course (1) Weakness: 88-year-old female with past medical history significant for hypertension, hyperlipidemia, hypothyroidism, history of bradycardia status post pacemaker last year at the [facility] and on 03/18/2024 she had had TAVR procedure for aortic valve at [place] and was discharged on 03/19/2024 was brought in by and son because of generalized weakness Cardioembolic stroke --CT Head:No evidence of acute intracranial pathology. --Repeat CT head:No acute intracranial findings. --Head CTA:Negative CT angiogram of the head. --Neck CTA:Negative CTA neck. MRI brain showed scattered small foci of restriction diffusion in bilateral frontal lobe compatible with small embolic infarcts. Discussed finding of the MRI with patient's son, and patient at bedside on 03/26. . Patient could have had embolic stroke from recent TAVR procedure or from brief episodes of atrial fibrillation. We discussed about benefit and risks of anticoagulation. At this time, patient is anemic, very weak and severely deconditioned which puts her at a high risk of fall that could result in life-threatening bleeding. Her son and both agree that patient needs to get physically stronger with rehabilitation which would hopefully make her fall risks low and then consider for anticoagulation in the near future. The florencio balized and understand that patient has risks of stroke presently secondary to atrial fibrillation but feel the risks of life threatening bleed is higher than stroke. Discussed with cardiology who agrees with the plan as well. Continue aspirin, Lipitor (low-dose given advanced age, low LDL) at discharge. Acute decompensated systolic heart failure Suspected Takotsubo cardiomyopathy --ECHO: EF 25 to 30%. Severe hypokinesis of the apex, distal to mid left ventricle segments. Basal segments are mildly hypokinetic. Right ventricle systolic function is mildly reduced. TAVR with normal function. Moderate mitral regurgitation. Mild mitral stenosis. Mild to moderate tricuspid regurgitation. Right ventricular systolic pressure is elevated to be 30 to 40 mmHg. Unknown baseline Checks x-ray done on 03/24 shows improvement in pulm edema During hospitalization, she was treated with iv lasix. Patient was saturating well in room air at the time of discharge. At discharge, increased dose of Bumex was added along with spironolactone and metoprolol. Patient to follow-up with PCP after discharge. Normocytic anemia Iron deficiency anemia Unknown baseline hemoglobin Anemia workup reviewed FOBT negative Received IV Venofer Hemoglobin stable Continue iron supplement at discharge Please note the above document was generated using voice recognition software. It may contain grammatical, syntax or spelling errors. Any formal questions or concerns about the content, text or information contained within the body of this dictation should be directly addressed to the provider for clarification Total Time Total Time Spent Total Time Spent (In Minutes): 35 Total Time Includes: Examination of the Patient, Discharge Planning, Medication Reconciliation, Communication With Other Providers and Other Discharge Plan Discharge Items Patient Disposition: Home - Self-Care Reason For Visit: WEAKNESS, STROKE LIKE SYMPTOMS Discharge Diagnosis: Acute decompensated heart failure Activity: Resume your previous activity Non-emergency contact: Primary Care Provider Call non-emergency contact if: you have any medication questions and your symptoms worsen Follow-up/Referrals: Yevgeniy Subramanian [Outside Practitioners] - 04/02/24 2:00 pm (Hospital follow up with Primary Care physician is scheduled for April 02, at 2:00pm. This will be at [facility]. ) Diet: Regular Addtl Attending Provider Instructions: You were admitted to the hospital due to shortness of breath. Your evaluated by cardiology during the hospitalization. Following changes have been made to your medication regimen; Start taking aspirin 81 mg once a day Start taking bumetanide 2 mg once a day Start taking metoprolol 25 mg once a day as well as spironolactone 12.5 mg once a day. Obtain basic metabolic panel to review her kidney function in 1 week. The dosing of the diuretic should be adjusted based on your weight and kidney function. Follow-up with cardiology and primary care doctor Pending Studies at Discharge: No Stand-Alone Forms: My [facility] Cash Check Card, Smoking Cessation, Medications to Prevent Stroke Medications and DC Order Prescriptions: New polyethylene glycol 3350 [Miralax] 17 gram Powder In Packet 17 g PO DAILY PRN (Reason: constipation) Qty: 30 0RF aspirin 81 mg Tablet,Delayed Release (Dr/Ec) 81 mg PO QAM Qty: 30 0RF spironolactone 25 mg Tablet 12.5 mg PO DAILY Qty: 30 0RF bumetanide 1 mg Tablet 2 mg PO QAM Qty: 60 0RF metoprolol succinate 25 mg Tablet Extended Release 24 Hr 25 mg PO QAM Qty: 30 0RF ferrous sulfate 325 mg (65 mg iron) Tablet,Delayed Release (Dr/Ec) 325 mg PO DAILY Qty: 30 0RF potassium chloride 10 mEq Tablet,Er Particles/Crystals 10 meq PO DAILY Qty: 30 0RF Continued atorvastatin 10 mg Tablet 10 mg PO DAILY Qty: 30 0RF cyanocobalamin (vitamin B-12) 1,000 mcg Tablet 1,000 mcg PO DAILY Qty: 30 0RF levothyroxine 75 mcg Tablet 75 mcg PO DAILY Qty: 30 0RF cholecalciferol (vitamin D3) [Vitamin D3] 125 mcg (5,000 unit) Tablet 125 mcg PO DAILY Qty: 30 0RF Discontinued losartan 50 mg Tablet 50 mg PO DAILY amlodipine 2.5 mg Tablet 2.5 mg PO DAILY potassium chloride 10 mEq Tablet Extended Release 10 meq PO DAILY bumetanide [Bumex] 0.5 mg Tablet 1 mg PO DAILY Discharge Orders: Discharge Order (Routine); Ordered 03/27/24 Ordered By: Keith Kolb Admission Data Admit Date/Time: 03/21/24 01:27 Attending Provider: Keith Kolb Admit Provider: Gabe Flores Primary Care Provider: PCP,NO Other Providers: Gabe Flores; Pamella Rothman; Doug Norris; Pamella Antonio; Nick Rush; Tu Lai; Piyush Obregon; Teto Montaño; Velia Frazier; Nico Rivera; Adal Zaragoza; Dana Hernandez; Fitz Spence; Antonette Calix; Alexi SawyerAmity; Teto Olivas; Ida Guerra; Yonny Mcmillan; Perry Anderson; Ernie Alvarado; Paul Logan; Martell Still; Annamarie Prieto; Pamella Fan; Rubi Mcnamara; Ida Barnett; Michael Santiago; Rey Gil; Sherry Cano; Radha Garnica; Kia Ramirez; Sylwia Marcus; Cory Kathleen; Gisselle Cordon
[2024-03-27 10:39] VITALS: PULSE 64; RESP 17; TEMP 98.1; O2SAT 98
--- NOTE | 2024-03-27 12:17 | Cardiology Progress Note ---
Date of Service March 27, 2024 Assessment & Plan (1) Weakness: (2) Elevated troponin: (3) S/P TAVR (transcatheter aortic valve replacement): Plan 1. Acute decompensated systolic congestive heart failure with associated right greater than left pleural effusions 2. Symptomatic bradycardia status post January 10, 2024 Andre dual-chamber pacemaker implantation at [facility] 3. Severe aortic valve stenosis status post March 19, 2024 TAVR (details unknown) with an [place] DELTA valve by Dr. López at [facility] 4. Asymptomatic paroxysmal atrial fibrillation via device interrogation; risks of anticoagulation felt to be greater than the benefit at this point. 5. Brain MRI on 03/25/2024 compatible with small embolic infarcts. 6. Hypertension 7. Dyslipidemia 8. Hypothyroidism 9. Iron deficiency anemia 10. Chronic kidney disease. Recommendations: * Bumex 2 mg daily * Potassium chloride 10 mEq/day * Spironolactone 12.5 mg/day * Metoprolol succinate 25 mg/day * Aspirin 81 mg/day * Atorvastatin 10 mg/day * Hold losartan (look to resume in the future as BP allows). * Anticoagulation risks appear greater than the benefit * Amlodipine discontinued this admission * Weekly metabolic panels and magnesium levels * Cardiology follow-up in [place] following the rehabilitation stay at [facility] in [place], [place], April 30, 2024 at 12:00 PM * Repeat resting echocardiography to be arranged at follow-up to reassess LVEF * Need to set afib alerts on the Andre pacemaker * Periodically consider anticoagulation (reduced dose Eliquis) +/- Watchman referral as an outpatient Admission and Anticipated Discharge Date Admission Date: March 21, 2024 Supervising Physician Co-Signing Physician Notes I have reviewed the advance practitioner's documentation, and I agree with, and take responsibility for the plan of care. Ernie Alvarado DO, [facility] Subjective Patient seen and examined. Chart, medications, and telemetry reviewed. and son at bedside. Feeling OK. No chest pain. No resting dyspnea. No palpitations. I's/O's: -8422 mL overall Telemetry: Atrial sensed ventricular paced rhythm predominately in the 70's. Review of Systems Review of Systems: See above Physical Exam Physical Exam: General: A&Ox3. NAD. HENT: Normocephalic. Atraumatic. Eyes: PER. Conjunctiva pink, sclera clear. Neck: JVD. Heart: Regular, paced. No murmur. Lungs: Absent breath sounds 1/3 up bilaterally. Abdomen: +BS. Soft. Nontender. No masses or organomegaly. Extremities: Trivial edema. Limited neurological examination is without focal deficits. Pulses: Posterior tibial=1/4. Results & Data Vital Signs (Past 12 Hours) Vital Signs Temp Pulse Resp BP Pulse Ox O2 Del Method 03/27/24 10:37 Room Air 03/27/24 10:36 36.7 C 64 17 110/63 98 Room Air 03/27/24 02:52 36.6 C 75 18 125/44 L 92 Room Air Laboratory Results Comprehensive Metabolic Panel 03/27/24 Range/Units 06:30 Sodium 139 (136-145) mmol/L Potassium 4.0 (3.5-5.1) mmol/L Chloride 101 (98-107) mmol/L Carbon Dioxide 34 H (21-32) mmol/L BUN 24 H (6-23) mg/dl Creatinine 1.09 (0.6-1.2) mg/dl Glucose 88 (70-99(Fasting)) mg/dl Calcium 8.8 (8.6-10.3) mg/dl Intake and Output 03/26/24 03/27/24 03/27/24 22:59 06:59 14:59 Output Total 1250 / 3701 450 / 3701 Balance -1250 / -3101 -450 / -3101 Output: Urine Amount (Catheter) 1250 / 3700 450 / 3700 Campos/Indwelling 1250 / 3700 450 / 3700 Other: # Unmeasured Voids 1 Weight 61.8 kg Weight Measurement Method Built in [facility]
[2024-03-27 13:00] VITALS: BP 94/57
== END 2024-03-27 13:50 | DRG 64 ==
LOC: ED 18:53 → SUATTDRO 03-21 01:27 → EDINP 03-21 01:27 → 2E 03-21 13:17